=== PATIENT | female | born 1945 | race Caucasian/White ===

== ENCOUNTER 2018-05-22 13:57 | Inpatient (IN) | payer OTHER, SELFPAY ==
[2018-05-22 14:09] VITALS: BP 122/93; PULSE 78; RESP 15; TEMP 36.6; O2SAT 94; BMI 29.2
--- NOTE | 2018-05-22 14:13 | ED.FALL ---
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 Urine WBC (0-5/HPF) Ur Squamous Epith Cells Urine Bacteria (None) Ur Culture Indicated? Micro UA Comment Phenytoin 34.4 H* 29.5 H D (10-20) ug/mL 05/23/18 05/24/18 05/24/18 Range/Units 08:32 05:00 05:00 WBC 5.6 (4.5-11.0) X10^3/uL RBC 4.16 (4.0-5.2) X10^6/uL Hgb 12.5 (12.0-16.0) g/dL Hct 38.0 (36-46) % MCV 91.4 (80-100) fL MCH 30.2 (26-34) PG MCHC 33.0 (30-36) % RDW 13.3 (11.6-14.8) % Plt Count 194 (150-400) X10^3/uL Neut % (Auto) 47.7 L (50-75) % Lymph % (Auto) 36.7 (25-40) % [place] % (Auto) 12.2 (3-14) % Eos % (Auto) 2.9 (2-4) % Baso % (Auto) 0.5 (0-2) % Neut # (Auto) 2700 (7445-4105) /uL Sodium (137-145) mmol/L Potassium (3.4-5.1) mmol/L Chloride (98-107) mmol/L Carbon Dioxide (22-32) mmol/L BUN (7-17) mg/dL Creatinine (0.52-1.04) mg/dL Estimated GFR (>60) mL/min BUN/Creatinine Ratio (6-22) Glucose (80-110) mg/dL Calcium (8.4-10.2) mg/dL Phosphorus (2.8-4.1) mg/dL Magnesium (1.6-2.3) mg/dL Total Bilirubin (0.2-1.3) mg/dL AST (14-36) IU/L ALT (9-52) IU/L Alkaline Phosphatase (38-126) U/L Total Protein (6.3-8.2) g/dL Albumin (3.5-5.0) g/dL Globulin (1.7-4.1) g/dL Albumin/Globulin Ratio (1.0-2.8) Urine Color Yellow Urine Appearance Sl cloudy Urine pH 7.0 (4.5-8.0) Ur Specific [place] 1.015 (1.000-1.035) Urine Protein Negative (Negative) Urine Glucose (UA) Negative (Negative) g/dL Urine Ketones Negative (NEGATIVE) Urine Occult Blood Trace-lysed (Negative) Urine Nitrate Positive H (Negative) Urine Bilirubin Negative (NEGATIVE) Urine Urobilinogen 0.2 (0.2) E.U./dL Ur Leukocyte Esterase 2+ H (NEGATIVE) Urine RBC 1-5/hpf (0-5/HPF) Urine WBC 30-100/hpf H (0-5/HPF) Ur Squamous Epith Cells 1-5 /hpf Urine Bacteria Many (>30) H (None) Ur Culture Indicated? Specimen cultured Micro UA Comment Not Reportable Phenytoin 24.1 H D (10-20) ug/mL 05/24/18 05/25/18 Range/Units 05:00 04:52 WBC (4.5-11.0) X10^3/uL RBC (4.0-5.2) X10^6/uL Hgb (12.0-16.0) g/dL Hct (36-46) % MCV (80-100) fL MCH (26-34) PG MCHC (30-36) % RDW (11.6-14.8) % Plt Count (150-400) X10^3/uL Neut % (Auto) (50-75) % Lymph % (Auto) (25-40) % [place] % (Auto) (3-14) % Eos % (Auto) (2-4) % Baso % (Auto) (0-2) % Neut # (Auto) (3970-6519) /uL Sodium 140 139 (137-145) mmol/L Potassium 4.1 4.2 (3.4-5.1) mmol/L Chloride 102 102 (98-107) mmol/L Carbon Dioxide 32 30 (22-32) mmol/L BUN 15 15 (7-17) mg/dL Creatinine 0.50 L 0.50 L (0.52-1.04) mg/dL Estimated GFR > 60.0 > 60.0 (>60) mL/min BUN/Creatinine Ratio 30.0 H 30.0 H (6-22) Glucose 96 95 (80-110) mg/dL Calcium 8.9 8.8 (8.4-10.2) mg/dL Phosphorus (2.8-4.1) mg/dL Magnesium (1.6-2.3) mg/dL Total Bilirubin 0.3 0.1 L (0.2-1.3) mg/dL AST 110 H 46 H (14-36) IU/L ALT 82 H 58 H (9-52) IU/L Alkaline Phosphatase 125 120 (38-126) U/L Total Protein 6.2 L 6.0 L (6.3-8.2) g/dL Albumin 3.5 3.3 L (3.5-5.0) g/dL Globulin 2.7 2.7 (1.7-4.1) g/dL Albumin/Globulin Ratio 1.3 1.2 (1.0-2.8) Urine Color Urine Appearance Urine pH (4.5-8.0) Ur Specific [place] (1.000-1.035) Urine Protein (Negative) Urine Glucose (UA) (Negative) g/dL Urine Ketones (NEGATIVE) Urine Occult Blood (Negative) Urine Nitrate (Negative) Urine Bilirubin (NEGATIVE) Urine Urobilinogen (0.2) E.U./dL Ur Leukocyte Esterase (NEGATIVE) Urine RBC (0-5/HPF) Urine WBC (0-5/HPF) Ur Squamous Epith Cells Urine Bacteria (None) Ur Culture Indicated? Micro UA Comment Phenytoin 19.7 D (10-20) ug/mL Discharge Plan Departure Patient Disposition: Admitted as Observation Clinical Impression: Unable to ambulate, Spinal stenosis, Falls frequently Discharge Date/Time: 05/22/18 18:26 Interventions: ED Discharge Assessment Last Done: 05/22/18 17:22 Admit Date/Time: 05/22/18 17:01 Admit Provider: Kenna Thornton <Mateo Turcios DO - Last Filed: 05/25/18 18:39> Cosign ED Attending Morgan Attestation: I was available for consultation during this patient's emergency department encounter
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
--- NOTE | 2018-05-22 14:50 | DI.CT.S_ITS ---
PROCEDURE: CT PEL WO CON INDICATIONS: Right hip pain/fall, do with LS spine TECHNIQUE: Noncontrast 3 mm axial sections acquired through the bony pelvis, with coronal and sagittal reformatting. COMPARISON: None. FINDINGS: Image quality: Excellent. Bones: Bilateral pars defects at L5 level with grade 1 anterolisthesis of L5 on S1 is seen. Degenerative disc disease at L5-S1 level is also noted. Pelvic ring is grossly intact. No acute pelvic fracture or dislocation is seen. No hip fracture or dislocation. Mild to moderate bilateral hip and sacroiliac joint osteoarthritic changes are seen. No evidence of avascular necrosis of the femoral head no suspicious intraosseous lesion. Soft tissues: There is no pelvic free fluid or free air. No bowel obstruction. Extensive sigmoid diverticulosis, no evidence of acute diverticulitis. Urinary bladder and uterus are within normal limits. IMPRESSION: 1. No acute pelvic or hip fracture. No dislocation. Osteoarthritis throughout bony pelvis. No evidence of avascular necrosis of femoral head. 2. Bilateral pars defect at L5 level with grade 1 anterolisthesis of L5 on S1. Degenerative disc disease at L5-S1 level. Dictated by: Alok Alves M.D. on 05/22/2018 at 15:21 Approved by: Alok Alves M.D. on 05/22/2018 at 15:25
[2018-05-22 15:11] VITALS: BP 129/62; PULSE 86; RESP 20; O2SAT 96
[2018-05-22] MEDS: HYDROCODONE/ACET 5/325 TABLET 2 TAB PO (15:17)
--- NOTE | 2018-05-22 16:16 | PC.NURSE ---
patient resting in bed,repositioned for comfort with pillow on left side.
[2018-05-22 16:50] VITALS: BP 119/56; PULSE 76; RESP 18; TEMP 36.7; O2SAT 97
--- NOTE | 2018-05-22 16:52 | PC.NURSE ---
Patient unable to take steps during ambulation trial d/t weakness not pain. positioned comfortably in bed on right side with pillow support. pt provided water and denies complaints at this time. friend at bedside, call light in reach.
[2018-05-22 17:35] VITALS: BP 134/57; PULSE 72; RESP 17; TEMP 36.7; O2SAT 93
[2018-05-22 17:49] VITALS: BMI 29.2
[2018-05-22 19:50] VITALS: BP 151/72; PULSE 82; RESP 18; TEMP 36.6
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
[2018-05-22 20:34] LABS: Add Manual Diff / Slide Review NO; Basophils Percent Auto 0.5 % (0-2); Eosinophils Percent Auto 0.9 % (2-4); Hematocrit 41.6 % (36-46); Hemoglobin 13.9 g/dL (12.0-16.0); Mean Corpuscular HGB Conc 33.4 % (30-36); Mean Corpuscular Hemoglobin 30.2 PG (26-34); Mean Corpuscular Volume 90.6 fL (80-100); Monocytes Percent Auto 9.5 % (3-14); Neutrophils Absolute Auto 5300 /uL (1500-7000); Neutrophils Percent Auto 61.1 % (50-75); Platelet Count 255 X10^3/uL (150-400); Red Cell Distribution Width 13.6 % (11.6-14.8); White Blood Cell Count 8.7 X10^3/uL (4.5-11.0)
[2018-05-22 20:48] LABS: Alanine Aminotransferase 25 IU/L (9-52); Albumin 4.1 g/dL (3.5-5.0); Albumin Globulin Ratio 1.4 (1.0-2.8); Alkaline Phosphatase 137 U/L (38-126); Aspartate Aminotransferase 64 IU/L (14-36); Bilirubin Total 0.4 mg/dL (0.2-1.3); Blood Urea Nitrogen 12 mg/dL (7-17); Calcium 9.1 mg/dL (8.4-10.2); Carbon Dioxide 29 mmol/L (22-32); Chloride 99 mmol/L (98-107); Estimated Glomerular Filt Rate > 60.0 mL/min (>60); Glucose 102 mg/dL (80-110); HEMOLYSIS < 15 (0-50); Magnesium 2.1 mg/dL (1.6-2.3); Phenytoin / Dilantin 34.4 ug/mL (10-20); Phosphorous 4.1 mg/dL (2.8-4.1); Potassium 3.5 mmol/L (3.4-5.1); Sodium 139 mmol/L (137-145); Total Protein 7.1 g/dL (6.3-8.2)
[2018-05-22] MEDS: dilTIAZem CD 180 MG CAP PO (21:34)
[2018-05-22] MEDS: DOCUSATE 100 MG CAPSULE PO (21:34)
[2018-05-22] MEDS: PHENobarbital 32.4 MG TABLET 97.2 MG PO (21:45)
[2018-05-22] MEDS: ACETAMINOPHEN 325 MG TABLET 650 MG PO (21:46)
[2018-05-22 23:50] VITALS: O2SAT 93
[2018-05-23] VITALS (10 sets, daily range): BP systolic 111–137; BP diastolic 52–66; PULSE 68–76; RESP 14–18; TEMP 36.3–36.7; O2SAT 92–97
[2018-05-23] MEDS: HYDROCODONE/ACET 5/325 TABLET 2 TAB PO ×3 (00:17→21:52)
--- NOTE | 2018-05-23 06:07 | PC.NURSE ---
Pt A&OX3. 93%RA. LS: clear. BTX4. CMS+. VSS. she c/o head ache last night and I gave her 2 tabs of norco. Pt denies pain at this time. She is unsure if she is still having dizziness or blurry vision. pt wants to be left alone, so she can sleep. call light in reach. bed alarm active.
[2018-05-23 07:20] LABS: Phenytoin / Dilantin 29.5 ug/mL (10-20)
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
[2018-05-23] MEDS: ENOXAPARIN 40 MG/0.4 ML SYRINGE SUBCUT (09:12)
[2018-05-23] MEDS: levETIRAcetam 250 MG TABLET 500 MG PO (09:12)
[2018-05-23 09:52] LABS: Appearance Urine UA SL CLOUDY; Bilirubin Urine UA NEGATIVE (NEGATIVE); Color Urine UA YELLOW; Glucose Urine UA NEGATIVE (Negative); Ketones Urine UA NEGATIVE (NEGATIVE); Leukocyte Esterase Urine UA 2+ (NEGATIVE); Nitrite Urine UA POSITIVE (Negative); Occult Blood Urine UA TRACE-LYSED (Negative); Protein Urine UA NEGATIVE (Negative); Specific Gravity Urine UA 1.015 (1.000-1.035); Urobilinogen Urine UA 0.2 E.U./dL (0.2)
[2018-05-23 10:21] LABS: Bacteria Urine Many (>30); Culture Indicated Urine Specimen Cultured; RBC Urine 1-5/HPF (0-5/HPF); Squamous Epithelial Cell Urine 1-5 /HPF; WBC Urine 30-100/HPF (0-5/HPF)
[2018-05-23] MEDS: LORATADINE 10 MG TABLET PO (11:44)
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
--- NOTE | 2018-05-23 16:01 | CM.IDA ---
Addendum entered by PARTHA oRman 05/24/18 12:03: [place] not Hinduism. Original Note: Attempted assessment today, pt w/two young members of Hindu[employer] at bedside and lunch being delivered. Pt requests this [employer] return another time or tomorrow. Will attempt assessment Saturday. Reviewed therapy note and spoke w/OT Venita. Pt is indp at baseline. She lost her spouse approx 18 mo ago and does not have anyone else listed as a contact or support. Pt currently far from baseline and would benefit from either SNF vs Home w/Home Health. As of today; pt not interested in SNF stay. Following closely. JW
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
[2018-05-23] MEDS: DOCUSATE 100 MG CAPSULE PO (21:51)
[2018-05-23] MEDS: dilTIAZem CD 180 MG CAP PO (21:51)
[2018-05-23] MEDS: PHENobarbital 32.4 MG TABLET 97.2 MG PO (21:51)
[2018-05-23] MEDS: LORazepam 2 MG/ML SYRINGE 0.5 MG IV (23:45)
[2018-05-24] VITALS (8 sets, daily range): BP systolic 115–139; BP diastolic 46–71; PULSE 67–78; RESP 16–18; TEMP 36.3–36.9; O2SAT 93–96
[2018-05-24 05:44] LABS: Add Manual Diff / Slide Review NO; Basophils Percent Auto 0.5 % (0-2); Eosinophils Percent Auto 2.9 % (2-4); Hemoglobin 12.5 g/dL (12.0-16.0); Lymphocytes Percent Auto 36.7 % (25-40); Mean Corpuscular Hemoglobin 30.2 PG (26-34); Mean Corpuscular Volume 91.4 fL (80-100); Monocytes Percent Auto 12.2 % (3-14); Neutrophils Absolute Auto 2700 /uL (1500-7000); Neutrophils Percent Auto 47.7 % (50-75); Platelet Count 194 X10^3/uL (150-400); Red Blood Cell Count 4.16 X10^6/uL (4.0-5.2); Red Cell Distribution Width 13.3 % (11.6-14.8); White Blood Cell Count 5.6 X10^3/uL (4.5-11.0)
[2018-05-24 05:51] LABS: Alanine Aminotransferase 82 IU/L (9-52); Albumin 3.5 g/dL (3.5-5.0); Albumin Globulin Ratio 1.3 (1.0-2.8); Alkaline Phosphatase 125 U/L (38-126); Aspartate Aminotransferase 110 IU/L (14-36); Bilirubin Total 0.3 mg/dL (0.2-1.3); Blood Urea Nitrogen 15 mg/dL (7-17); Calcium 8.9 mg/dL (8.4-10.2); Carbon Dioxide 32 mmol/L (22-32); Chloride 102 mmol/L (98-107); Estimated Glomerular Filt Rate > 60.0 mL/min (>60); Globulin 2.7 g/dL (1.7-4.1); Glucose 96 mg/dL (80-110); HEMOLYSIS < 15 (0-50); Potassium 4.1 mmol/L (3.4-5.1); Sodium 140 mmol/L (137-145); Total Protein 6.2 g/dL (6.3-8.2)
[2018-05-24 06:10] LABS: Phenytoin / Dilantin 24.1 ug/mL (10-20)
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
[2018-05-24] MEDS: DOCUSATE 100 MG CAPSULE PO ×2 (10:39→21:32)
[2018-05-24] MEDS: levETIRAcetam 250 MG TABLET 500 MG PO (10:39)
[2018-05-24] MEDS: LORATADINE 10 MG TABLET PO (10:39)
[2018-05-24] MEDS: ENOXAPARIN 40 MG/0.4 ML SYRINGE SUBCUT (10:39)
[2018-05-24] MEDS: HYDROCODONE/ACET 5/325 TABLET 2 TAB PO ×2 (10:49→22:27)
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
--- NOTE | 2018-05-24 12:05 | PT.IPTN ---
Current Diagnoses Spinal stenosis, site unspecified (05/22/18) Difficulty in walking, not elsewhere classified (05/22/18) Repeated falls (05/22/18) Physical Therapy Treatment Note M2 PT-IP Current Condition Start: 05/23/18 12:36 Freq: NEEDED Status: Active Protocol: Document 05/23/18 11:00 HH (Rec: 05/23/18 13:08 [email or web address]) Physical Therapy Current Condition Current Condition Evaluation Date 05/23/17 Treatment Diagnosis GLF, UTI, difficulty in walking, generalized muscle weakness Onset Date 05/22/18 Weight Bearing Status Weight Bearing Status Weight Bear as Tolerated M3 PT-IP Subjective Start: 05/23/18 12:36 Freq: NEEDED Status: Active Protocol: Document 05/24/18 12:05 RCC (Rec: 05/24/18 12:27 RCC [id number]) Subjective Physical Therapy Visit Type Type Treatment Note Visit Start Time 11:40 Visit Stop Time 12:05 Total Visit Minutes 25 Number of CLAIMS REPRESENTATIVE Visits 0 Physical Therapy Visit Comments Patient Comments pt states she feels apprehensive about mobility. Therapy Pain Assessment Pain Present Pain Present Pain Reported M4 PT-IP Mobility and Gait Start: 05/23/18 12:36 Freq: NEEDED Status: Active Protocol: Document 05/24/18 12:05 RCC (Rec: 05/24/18 12:27 RCC [id number]) PT-Bed Mobility Assessment Supine to Sit Supine to Sit Contact Guard Assistance Head of Bed Elevated Bedrails Sit to Supine Sit to Supine Standby Assistance Head of Bed Elevated Bedrails Scooting Scooting to Edge of Bed Standby Assistance Scooting Up and Down in Bed Standby Assistance PT-Transfer Assessment Sit to and From Stand Sit to and from Stand Contact Guard Assistance Equipment Transfer Assistive Device Gait Belt Front Wheeled Walker Transfers Transfer Destination Bed Transfer Technique Stand Step Pivot Transfer Ability Level of Assist Contact Guard Assistance Comments Mobility Comments increased amount of time required for bed mobility Gait Assessment Gait Gait Assistance Required: Contact Guard Assist Distance (Feet) 20 Assistive Devices Assistive Device Gait Belt Front Wheeled Walker Gait Deviations General Gait Pattern Antalgic Decreased Stride Length Decreased Feet Clearance Flexed Trunk Step-to Gait Factors Limiting Gait Function Factors Limiting Gait Function Decreased Activity Tolerance Decreased Strength Pain Poor Balance Poor Safety Awareness Comments Gait Comments increased amount of time for ambulation, 1 sitting rest break after 10 ft of gait, then 2nd 10 ft of gait after recovered. M5 PT-IP Objective Assessments Start: 05/23/18 12:36 Freq: NEEDED Status: Active Protocol: Document 05/23/18 11:00 (Rec: 05/23/18 13:08 [email or web address]) Orientation Orientation/Cognition Level of Alertness Alert Orientation Name Age Birthday Month Date Year Day of Week Place Situation Language Function Ability No Deficits Noted Safety Awareness Understands Safety Issues Memory Description No Deficits Noted Gross Range of Motion Upper Extremity ROM Assessment Within Functional Limits Lower Extremity ROM Assessment Within Functional Limits Strength Upper Extremity Strength Assessment Within Functional Limits Lower Extremity Strength Assessment Bilaterally Impaired Hip 3/5 Knee 3/5 Ankle 3/5 Comments Strength Comments She was not able to stand upright who reports I feel my legs are shaky and about to buckle. She also demonstrates gross LE strength 3/5 with significant tremors upon exertion. Coordination Assessment Gross Coordination Gross Coordination WNL Sensation Assessment Sensation Gross Sensation WNL M6 PT-IP Treatment Start: 05/23/18 12:36 Freq: NEEDED Status: Active Protocol: Document 05/23/18 11:00 (Rec: 05/23/18 13:08 [email or web address]) Physical Therapy Treatment Exercises Exercises Ankle Pumps Gluteal Sets Quad Sets Heel Slides Straight Leg Raises M7 PT-IP Assessment and Plan Start: 05/23/18 12:36 Freq: NEEDED Status: Active Protocol: Document 05/24/18 12:05 RCC (Rec: 05/24/18 12:27 RCC [id number]) PT Summary Assessment and Plan Summary Assessment Summary Pt able to progress her gait slightly, but still very limited with mobility. She did not have any buckling of the LEs today, but does have evident fatigue with BLE shaking/trembling. She required a seated rest for 2 min after gait x10 ft, just to be able to tolerate gait x10 ft again. Pt is not safe to return home at this point, and if she does not improve her mobility she may require increased care or SNF rehabilitation placement. Goals Bed Mobility Goal Standby Assistance Transfer Goal Standby Assistance Gait Goal Standby Assistance Gait Distance 100 Other Goals stair climbing x 5 with railings x SBA Days to Meet Goals 10 Frequency of Treatment Frequency Of Treatment Once a Day Treatment Plan Other Recommendations and Next Treatment progress gait at tolerated, Focus stairs when able. Recommendations To Nursing Amount of Assist Needed 1 Person Assist Discharge Recommendations PT Discharge Recommendations Home Home Health SNF Rehab
[2018-05-24] MEDS: CEFAZOLIN VIAL 1 GM in SODIUM CHLORIDE 0.9% 100 ML 200 ML IV ×2 (14:52→21:32)
[2018-05-24] MEDS: dilTIAZem CD 180 MG CAP PO (21:32)
[2018-05-24] MEDS: PHENobarbital 32.4 MG TABLET 97.2 MG PO (21:32)
[2018-05-25] VITALS (10 sets, daily range): BP systolic 110–136; BP diastolic 51–75; PULSE 64–76; RESP 16–20; TEMP 36.4–36.8; O2SAT 92–95
[2018-05-25 06:00] LABS: Alanine Aminotransferase 58 IU/L (9-52); Albumin 3.3 g/dL (3.5-5.0); Albumin Globulin Ratio 1.2 (1.0-2.8); Alkaline Phosphatase 120 U/L (38-126); Aspartate Aminotransferase 46 IU/L (14-36); Bilirubin Total 0.1 mg/dL (0.2-1.3); Blood Urea Nitrogen 15 mg/dL (7-17); Calcium 8.8 mg/dL (8.4-10.2); Carbon Dioxide 30 mmol/L (22-32); Chloride 102 mmol/L (98-107); Estimated Glomerular Filt Rate > 60.0 mL/min (>60); Globulin 2.7 g/dL (1.7-4.1); Glucose 95 mg/dL (80-110); HEMOLYSIS < 15 (0-50); Potassium 4.2 mmol/L (3.4-5.1); Sodium 139 mmol/L (137-145)
[2018-05-25 06:32] LABS: Phenytoin / Dilantin 19.7 ug/mL (10-20)
[2018-05-25] MEDS: HYDROCODONE/ACET 5/325 TABLET 2 TAB PO (06:55)
--- NOTE | 2018-05-25 07:41 | PC.NURSE ---
Patient slept well this shift. Got up to use BR, had right flank and side pain flare up with movement. 2 norco given for pain. She is concerned with her dilantin levels, and her ability to be discharged.
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
[2018-05-25] MEDS: ENOXAPARIN 40 MG/0.4 ML SYRINGE SUBCUT (09:41)
[2018-05-25] MEDS: DOCUSATE 100 MG CAPSULE PO ×2 (09:41→20:58)
[2018-05-25] MEDS: LORATADINE 10 MG TABLET PO (09:41)
[2018-05-25] MEDS: ONDANSETRON 4 MG ODT PO (11:54)
[2018-05-25] MEDS: SUMAtriptan 25 MG TABLET 100 MG PO (12:49)
--- NOTE | 2018-05-25 14:19 | PT.IPTN ---
Current Diagnoses Spinal stenosis, site unspecified (05/22/18) Difficulty in walking, not elsewhere classified (05/22/18) Repeated falls (05/22/18) Physical Therapy Treatment Note M2 PT-IP Current Condition Start: 05/23/18 12:36 Freq: NEEDED Status: Active Protocol: Document 05/23/18 11:00 HH (Rec: 05/23/18 13:08 HH [email or web address]) Physical Therapy Current Condition Current Condition Evaluation Date 05/23/17 Treatment Diagnosis GLF, UTI, difficulty in walking, generalized muscle weakness Onset Date 05/22/18 Weight Bearing Status Weight Bearing Status Weight Bear as Tolerated M3 PT-IP Subjective Start: 05/23/18 12:36 Freq: NEEDED Status: Active Protocol: Document 05/25/18 10:35 CLB (Rec: 05/25/18 14:19 CLB [id number]) Subjective Physical Therapy Visit Type Type Treatment Note Visit Start Time 10:35 Visit Stop Time 11:05 Total Visit Minutes 30 Number of REFRACTORY MANAGER Visits 1 Physical Therapy Visit Comments Patient Comments Pt states she feels better today. Therapy Pain Assessment Pain When Pain Assessed At Rest Pain Present Pain Present Pain Reported Location Right side body Intensity 5 Scale Used Numeric (1 - 10) Pain Management Techniques Apply Cold Re-positioning Timing of Activity with Medications M4 PT-IP Mobility and Gait Start: 05/23/18 12:36 Freq: NEEDED Status: Active Protocol: Document 05/25/18 10:35 CLB (Rec: 05/25/18 14:19 CLB [id number]) PT-Bed Mobility Assessment Supine to Sit Supine to Sit Contact Guard Assistance Head of Bed Elevated Sit to Supine Sit to Supine Standby Assistance Head of Bed Elevated Scooting Scooting to Edge of Bed Standby Assistance Scooting Up and Down in Bed Standby Assistance PT-Transfer Assessment Sit to and From Stand Sit to and from Stand Contact Guard Assistance Equipment Transfer Assistive Device Gait Belt Front Wheeled Walker Transfers Transfer Destination Chair Transfer Technique after ambulation Transfer Ability Level of Assist Contact Guard Assistance Comments Mobility Comments Pt requiring less assist with bed mobility but needed cues for sequencing. Gait Assessment Gait Gait Assistance Required: Contact Guard Assist Distance (Feet) 100 Assistive Devices Assistive Device Gait Belt Front Wheeled Walker Gait Deviations General Gait Pattern Antalgic Decreased Stride Length Decreased Feet Clearance Flexed Trunk Factors Limiting Gait Function Factors Limiting Gait Function Decreased Activity Tolerance Decreased Strength Pain Poor Balance Poor Safety Awareness Comments Gait Comments Pt increased gait needing seated rest break after ~50ft. Pt had no shaking of legs and was able to ambulate back to room ~50ft before sitting. Chair follow was use with pt and pt was able to sit as soon as she felt fatigued. M5 PT-IP Objective Assessments Start: 05/23/18 12:36 Freq: NEEDED Status: Active Protocol: Document 05/23/18 11:00 HH (Rec: 05/23/18 13:08 [email or web address]) Orientation Orientation/Cognition Level of Alertness Alert Orientation Name Age Birthday Month Date Year Day of Week Place Situation Language Function Ability No Deficits Noted Safety Awareness Understands Safety Issues Memory Description No Deficits Noted Gross Range of Motion Upper Extremity ROM Assessment Within Functional Limits Lower Extremity ROM Assessment Within Functional Limits Strength Upper Extremity Strength Assessment Within Functional Limits Lower Extremity Strength Assessment Bilaterally Impaired Hip 3/5 Knee 3/5 Ankle 3/5 Comments Strength Comments She was not able to stand upright who reports I feel my legs are shaky and about to buckle. She also demonstrates gross LE strength 3/5 with significant tremors upon exertion. Coordination Assessment Gross Coordination Gross Coordination WNL Sensation Assessment Sensation Gross Sensation WNL M6 PT-IP Treatment Start: 05/23/18 12:36 Freq: NEEDED Status: Active Protocol: Document 05/23/18 11:00 HH (Rec: 05/23/18 13:08 [email or web address]) Physical Therapy Treatment Exercises Exercises Ankle Pumps Gluteal Sets Quad Sets Heel Slides Straight Leg Raises M7 PT-IP Assessment and Plan Start: 05/23/18 12:36 Freq: NEEDED Status: Active Protocol: Document 05/25/18 10:35 CLB (Rec: 05/25/18 14:19 CLB [id number]) PT Summary Assessment and Plan Summary Assessment Summary Pt progressed gait to ~100ft needing one 5 minute rest break as chair follow was used . Pt had no shaking in legs of buckling of LEs. Pt improved bed mobility but requires cues for sequencing and needs cues for chair approach for safety. Goals Bed Mobility Goal Standby Assistance Transfer Goal Standby Assistance Gait Goal Standby Assistance Gait Distance 100 Other Goals stair climbing x 5 with railings x SBA Days to Meet Goals 10 Frequency of Treatment Frequency Of Treatment Once a Day Treatment Plan Other Recommendations and Next Treatment progress gait at tolerated, Focus stairs when able. Discharge Recommendations PT Discharge Recommendations Home Home Health SNF Rehab
--- NOTE | 2018-05-25 16:05 | CM.DPC ---
DCP Cont: Met w/pt again today. She was sitting up in chair; pt still feeling somewhat overwhelmed today by life stressors. Again encouraged pt to concentrate on getting stable here and getting safely home, then tackling long-term tasks and goals. Discussed HH and pt agreeable to referral to [facility]. Pt okay w/ PT/OT/RN, does not want a bath aid at this time. Completed F2F and HH order. Referral still needed. P: DC likely Saturday or Saturday, hopefully w/[facility] to f/u. This PHOTOGRAPHIC DOUBLE encouraged pt to secure a ride today to her counseling appt 05.27. at 1400. PARTHA Roman
[2018-05-25] MEDS: CEFAZOLIN 2 GM/100 ML FROZ.PIGGY IV ×2 (17:00→23:38)
[2018-05-25] MEDS: HYDROCODONE/ACET 5/325 TABLET 1 TAB PO (20:58)
[2018-05-25] MEDS: PHENobarbital 32.4 MG TABLET 97.2 MG PO (20:58)
[2018-05-25] MEDS: levETIRAcetam 250 MG TABLET 500 MG PO (20:59)
[2018-05-25] MEDS: PHENYTOIN ER 100 MG CAPSULE 300 MG PO (20:59)
[2018-05-25] MEDS: dilTIAZem CD 180 MG CAP PO (21:30)
[2018-05-26] MEDS: LORazepam 0.5 MG TABLET PO (00:32)
[2018-05-26 05:10] VITALS: BP 120/59; PULSE 60; RESP 20; TEMP 36.4; O2SAT 96
[2018-05-26 06:06] LABS: Alanine Aminotransferase 56 IU/L (9-52); Albumin 3.4 g/dL (3.5-5.0); Albumin Globulin Ratio 1.3 (1.0-2.8); Alkaline Phosphatase 116 U/L (38-126); Aspartate Aminotransferase 51 IU/L (14-36); BUN Creatinine Ratio 37.5 (6-22); Bilirubin Total 0.2 mg/dL (0.2-1.3); Blood Urea Nitrogen 15 mg/dL (7-17); Carbon Dioxide 28 mmol/L (22-32); Chloride 103 mmol/L (98-107); Estimated Glomerular Filt Rate > 60.0 mL/min (>60); Globulin 2.7 g/dL (1.7-4.1); Glucose 82 mg/dL (80-110); HEMOLYSIS 50 (0-50); Phenytoin / Dilantin 16.1 ug/mL (10-20); Potassium 4.3 mmol/L (3.4-5.1); Sodium 139 mmol/L (137-145); Total Protein 6.1 g/dL (6.3-8.2)
[2018-05-26 06:09] LABS: Add Manual Diff / Slide Review NO; Basophils Percent Auto 0.4 % (0-2); Eosinophils Percent Auto 2.5 % (2-4); Hematocrit 36.9 % (36-46); Hemoglobin 12.5 g/dL (12.0-16.0); Lymphocytes Percent Auto 36.2 % (25-40); Mean Corpuscular Hemoglobin 30.5 PG (26-34); Mean Corpuscular Volume 89.8 fL (80-100); Neutrophils Absolute Auto 2700 /uL (1500-7000); Neutrophils Percent Auto 47.9 % (50-75); Platelet Count 182 X10^3/uL (150-400); Red Blood Cell Count 4.11 X10^6/uL (4.0-5.2); Red Cell Distribution Width 13.6 % (11.6-14.8); White Blood Cell Count 5.6 X10^3/uL (4.5-11.0)
[2018-05-26 08:00] VITALS: BP 111/60; PULSE 67; RESP 16; TEMP 35.4; O2SAT 97
[2018-05-26 08:18] VITALS: O2SAT 96
[2018-05-26] MEDS: CEFAZOLIN 2 GM/100 ML FROZ.PIGGY IV ×3 (08:34→23:41)
[2018-05-26] MEDS: PHENobarbital 32.4 MG TABLET 97.2 MG PO ×2 (08:35→22:30)
[2018-05-26] MEDS: LORATADINE 10 MG TABLET PO (08:44)
[2018-05-26] MEDS: ENOXAPARIN 40 MG/0.4 ML SYRINGE SUBCUT (08:44)
[2018-05-26] MEDS: SODIUM CHLORIDE 0.9% FLUSH 10 ML IV ×3 (08:44→23:41)
--- NOTE | 2018-05-26 12:15 | PT.IPTN ---
Current Diagnoses Spinal stenosis, site unspecified (05/22/18) Difficulty in walking, not elsewhere classified (05/22/18) Repeated falls (05/22/18) Physical Therapy Treatment Note M2 PT-IP Current Condition Start: 05/23/18 12:36 Freq: NEEDED Status: Active Protocol: Document 05/23/18 11:00 HH (Rec: 05/23/18 13:08 HH [email or web address]) Physical Therapy Current Condition Current Condition Evaluation Date 05/23/17 Treatment Diagnosis GLF, UTI, difficulty in walking, generalized muscle weakness Onset Date 05/22/18 Weight Bearing Status Weight Bearing Status Weight Bear as Tolerated M3 PT-IP Subjective Start: 05/23/18 12:36 Freq: NEEDED Status: Active Protocol: Document 05/26/18 10:00 CLB (Rec: 05/26/18 12:15 CLB [email or web address]) Subjective Physical Therapy Visit Type Type Treatment Note Visit Start Time 10:00 Visit Stop Time 10:26 Total Visit Minutes 26 Number of BAND DIRECTOR Visits 2 Physical Therapy Visit Comments Patient Comments Pt willing to get up for a walk but refused sitting up in chair. Therapy Pain Assessment Pain When Pain Assessed At Rest Pain Present Pain Present Pain Reported Location Right side body Scale Used unable to state M4 PT-IP Mobility and Gait Start: 05/23/18 12:36 Freq: NEEDED Status: Active Protocol: Document 05/26/18 10:00 CLB (Rec: 05/26/18 12:15 CLB [email or web address]) PT-Bed Mobility Assessment Supine to Sit Supine to Sit Standby Assistance Sit to Supine Sit to Supine Standby Assistance Head of Bed Elevated Scooting Scooting to Edge of Bed Standby Assistance Scooting Up and Down in Bed Standby Assistance PT-Transfer Assessment Sit to and From Stand Sit to and from Stand Contact Guard Assistance Equipment Transfer Assistive Device Gait Belt Front Wheeled Walker Transfers Transfer Destination Bed Transfer Technique after ambulation Transfer Ability Level of Assist Contact Guard Assistance Comments Mobility Comments Pt able to get to EOB w/o cues with good pacing. Gait Assessment Gait Gait Assistance Required: Contact Guard Assist Distance (Feet) 110 Assistive Devices Assistive Device Gait Belt Front Wheeled Walker Gait Deviations General Gait Pattern Decreased Stride Length Decreased Feet Clearance Flexed Trunk Factors Limiting Gait Function Factors Limiting Gait Function Decreased Activity Tolerance Decreased Strength Pain Comments Gait Comments Pt able to ambulate ~110 ft w/ o need of rest break. Pt also ambulated with quicker pace with increase stride length. M5 PT-IP Objective Assessments Start: 05/23/18 12:36 Freq: NEEDED Status: Active Protocol: Document 05/23/18 11:00 HH (Rec: 05/23/18 13:08 HH [email or web address]) Orientation Orientation/Cognition Level of Alertness Alert Orientation Name Age Birthday Month Date Year Day of Week Place Situation Language Function Ability No Deficits Noted Safety Awareness Understands Safety Issues Memory Description No Deficits Noted Gross Range of Motion Upper Extremity ROM Assessment Within Functional Limits Lower Extremity ROM Assessment Within Functional Limits Strength Upper Extremity Strength Assessment Within Functional Limits Lower Extremity Strength Assessment Bilaterally Impaired Hip 3/5 Knee 3/5 Ankle 3/5 Comments Strength Comments She was not able to stand upright who reports I feel my legs are shaky and about to buckle. She also demonstrates gross LE strength 3/5 with significant tremors upon exertion. Coordination Assessment Gross Coordination Gross Coordination WNL Sensation Assessment Sensation Gross Sensation WNL M6 PT-IP Treatment Start: 05/23/18 12:36 Freq: NEEDED Status: Active Protocol: Document 05/26/18 10:00 CLB (Rec: 05/26/18 12:15 CLB [email or web address]) Physical Therapy Treatment Exercises Exercises Gluteal Sets Quad Sets Heel Slides M7 PT-IP Assessment and Plan Start: 05/23/18 12:36 Freq: NEEDED Status: Active Protocol: Document 05/26/18 10:00 CLB (Rec: 05/26/18 12:15 CLB [id number]) PT Summary Assessment and Plan Summary Assessment Summary Pt progressing with bed mobility and gait. Pt ambulated ~110ft CGA w/o need of rest break. Pt had no shaking or weakness in LE with any activities today. Goals Bed Mobility Goal Standby Assistance Transfer Goal Standby Assistance Other Goals stair climbing x 5 with railings x SBA Days to Meet Goals 10 Frequency of Treatment Frequency Of Treatment Once a Day Treatment Plan Other Recommendations and Next Treatment progress gait at tolerated, Focus stairs when able. Recommendations To Nursing Amount of Assist Needed 1 Person Assist Discharge Recommendations PT Discharge Recommendations Home Home Health SNF Rehab
[2018-05-26 13:00] VITALS: BP 120/63; PULSE 80; RESP 16; TEMP 37.4; O2SAT 96
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
[2018-05-26 16:14] VITALS: BP 127/53; PULSE 69; RESP 20; TEMP 37.2; O2SAT 96
--- NOTE | 2018-05-26 16:56 | PT.IPTN ---
Current Diagnoses Spinal stenosis, site unspecified (05/22/18) Difficulty in walking, not elsewhere classified (05/22/18) Repeated falls (05/22/18) Physical Therapy Treatment Note M2 PT-IP Current Condition Start: 05/23/18 12:36 Freq: NEEDED Status: Active Protocol: Document 05/23/18 11:00 [facility] (Rec: 05/23/18 13:08 [facility] [id number]) Physical Therapy Current Condition Current Condition Evaluation Date 05/23/17 Treatment Diagnosis GLF, UTI, difficulty in walking, generalized muscle weakness Onset Date 05/22/18 Weight Bearing Status Weight Bearing Status Weight Bear as Tolerated M3 PT-IP Subjective Start: 05/23/18 12:36 Freq: NEEDED Status: Active Protocol: Document 05/26/18 15:10 [facility] (Rec: 05/26/18 16:56 [facility] [id number]) Subjective Physical Therapy Visit Type Type Treatment Note Visit Start Time 15:10 Visit Stop Time 15:50 Total Visit Minutes 40 Number of GUT CARRIER Visits 3 Physical Therapy Visit Comments Patient Comments Pt willing to trial stairs. Therapy Pain Assessment Pain When Pain Assessed At Rest Pain Present Pain Present Pain Reported M4 PT-IP Mobility and Gait Start: 05/23/18 12:36 Freq: NEEDED Status: Active Protocol: Document 05/26/18 15:10 [facility] (Rec: 05/26/18 16:56 [facility] [id number]) PT-Bed Mobility Assessment Supine to Sit Supine to Sit Standby Assistance Sit to Supine Sit to Supine Standby Assistance Head of Bed Elevated Scooting Scooting to Edge of Bed Standby Assistance Scooting Up and Down in Bed Standby Assistance PT-Transfer Assessment Sit to and From Stand Sit to and from Stand Contact Guard Assistance Equipment Transfer Assistive Device Gait Belt Front Wheeled Walker Transfers Transfer Destination Bed Toilet Wheelchair Transfer Ability Level of Assist Contact Guard Assistance Comments Mobility Comments Pt able to transfer to toilet using grab bars and perform own pericare. Gait Assessment Gait Gait Assistance Required: Contact Guard Assist Distance (Feet) 50 Assistive Devices Assistive Device Gait Belt Front Wheeled Walker Gait Deviations General Gait Pattern Decreased Stride Length Decreased Feet Clearance Flexed Trunk Factors Limiting Gait Function Factors Limiting Gait Function Decreased Activity Tolerance Decreased Strength Pain Comments Gait Comments Pt ambulated to then to . Stair Climbing Assessment Evaluation Level of Assist On Stairs Contact Guard Assistance Devices Stair Climbing Assistive Devices Left Railing Technique/Endurance Stair Climbing Direction Ascend and Descend Stair Climbing Technique Step to Step Number of Steps Climbed 3 Query Text: Stair Climbing Set # Repetitions (reps) 4 Comments Stair Climbing Comments Pt trialed stairs going up/ down step to step then pt requested using both hands side stepping. Spoke with PT Gonzalez concerning pt progress and have changed pt to twice a day for therapy. M5 PT-IP Objective Assessments Start: 05/23/18 12:36 Freq: NEEDED Status: Active Protocol: Document 05/23/18 11:00 [facility] (Rec: 05/23/18 13:08 [facility] [id number]) Orientation Orientation/Cognition Level of Alertness Alert Orientation Name Age Birthday Month Date Year Day of Week Place Situation Language Function Ability No Deficits Noted Safety Awareness Understands Safety Issues Memory Description No Deficits Noted Gross Range of Motion Upper Extremity ROM Assessment Within Functional Limits Lower Extremity ROM Assessment Within Functional Limits Strength Upper Extremity Strength Assessment Within Functional Limits Lower Extremity Strength Assessment Bilaterally Impaired Hip 3/5 Knee 3/5 Ankle 3/5 Comments Strength Comments She was not able to stand upright who reports I feel my legs are shaky and about to buckle. She also demonstrates gross LE strength 3/5 with significant tremors upon exertion. Coordination Assessment Gross Coordination Gross Coordination WNL Sensation Assessment Sensation Gross Sensation WNL M6 PT-IP Treatment Start: 05/23/18 12:36 Freq: NEEDED Status: Active Protocol: Document 05/26/18 15:10 [facility] (Rec: 05/26/18 16:56 [facility] [id number]) Physical Therapy Treatment Exercises Exercises Gluteal Sets Quad Sets Heel Slides M7 PT-IP Assessment and Plan Start: 05/23/18 12:36 Freq: NEEDED Status: Active Protocol: Document 05/26/18 15:10 [facility] (Rec: 05/26/18 16:56 [facility] [id number]) PT Summary Assessment and Plan Summary Assessment Summary Pt requires SBA for all bed mobility, CGA for sit-stand with cues for chair/bed/toilet approach. Pt able to climb 4 sets of 3 steps w/o complaint of increased pain or weakness. Goals Bed Mobility Goal Standby Assistance Transfer Goal Standby Assistance Gait Goal Standby Assistance Gait Distance 100 Other Goals stair climbing x 5 with railings x SBA Days to Meet Goals 10 Frequency of Treatment Frequency Of Treatment Twice a Day Treatment Plan Other Recommendations and Next Treatment progress gait at tolerated, Focus stairs when able. Recommendations To Nursing Amount of Assist Needed 1 Person Assist Discharge Recommendations PT Discharge Recommendations Home Home Health SNF Rehab Equipment Needed for Home Before FWW needed at d/c if going Discharge home.
[2018-05-26] MEDS: HYDROCODONE/ACET 5/325 TABLET 1 TAB PO (18:15)
[2018-05-26 19:59] VITALS: BP 120/53; PULSE 72; RESP 18; TEMP 36.9; O2SAT 93
[2018-05-26 21:06] LABS: Levetiracetam Keppra 4.5 mcg/mL
[2018-05-26] MEDS: dilTIAZem CD 180 MG CAP PO (21:15)
[2018-05-26] MEDS: levETIRAcetam 250 MG TABLET 500 MG PO (21:15)
[2018-05-26] MEDS: PHENYTOIN ER 100 MG CAPSULE 300 MG PO (21:15)
[2018-05-26] MEDS: DOCUSATE 100 MG CAPSULE PO (21:15)
[2018-05-27] VITALS: O2SAT 93
[2018-05-27 00:25] VITALS: BP 115/58; PULSE 68; RESP 15; TEMP 36.6; O2SAT 93
[2018-05-27] MEDS: LORazepam 0.5 MG TABLET PO (00:26)
[2018-05-27 06:02] LABS: Alanine Aminotransferase 45 IU/L (9-52); Albumin 3.5 g/dL (3.5-5.0); Albumin Globulin Ratio 1.4 (1.0-2.8); Alkaline Phosphatase 108 U/L (38-126); Aspartate Aminotransferase 40 IU/L (14-36); BUN Creatinine Ratio 32.5 (6-22); Bilirubin Total 0.2 mg/dL (0.2-1.3); Blood Urea Nitrogen 13 mg/dL (7-17); Calcium 8.8 mg/dL (8.4-10.2); Carbon Dioxide 30 mmol/L (22-32); Chloride 102 mmol/L (98-107); Estimated Glomerular Filt Rate > 60.0 mL/min (>60); Globulin 2.5 g/dL (1.7-4.1); Glucose 92 mg/dL (80-110); HEMOLYSIS < 15 (0-50); Phenytoin / Dilantin 17.7 ug/mL (10-20); Potassium 4.4 mmol/L (3.4-5.1); Sodium 140 mmol/L (137-145)
[2018-05-27 06:13] VITALS: BP 105/51; PULSE 69; RESP 18; TEMP 36.8; O2SAT 97
[2018-05-27] MEDS: HYDROCODONE/ACET 5/325 TABLET 1 TAB PO (08:33)
[2018-05-27] MEDS: LORATADINE 10 MG TABLET PO (08:34)
[2018-05-27] MEDS: DOCUSATE 100 MG CAPSULE PO (08:34)
[2018-05-27] MEDS: ENOXAPARIN 40 MG/0.4 ML SYRINGE SUBCUT (08:34)
[2018-05-27] MEDS: CEFAZOLIN 2 GM/100 ML FROZ.PIGGY IV (08:37)
[2018-05-27] MEDS: SODIUM CHLORIDE 0.9% FLUSH 10 ML IV (08:38)
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
[2018-05-27 10:35] VITALS: O2SAT 96
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
--- NOTE | 2018-05-27 11:15 | OT.IP.TRT ---
Current Diagnoses Spinal stenosis, site unspecified (05/22/18) Difficulty in walking, not elsewhere classified (05/22/18) Repeated falls (05/22/18) Occupational Therapy Treatment Note M2 OT-IP Current Condition Start: 05/23/18 16:07 Freq: Status: Active Protocol: Document 05/23/18 16:08 [facility] (Rec: 05/23/18 16:39 [facility] [id number]) Occupational Therapy Current Condition Current Condition Evaluation Date 05/23/18 Treatment Diagnosis GLF , UTI ,weakness M3 OT- IP Subjective and Pain Start: 05/23/18 16:07 Freq: Status: Active Protocol: Document 05/27/18 11:11 [facility] (Rec: 05/27/18 11:15 [facility] [id number]) OT- Subjective Occupational Therapy Visit Type Type Treatment Note Visit Start Time 10:37 Visit Stop Time 10:45 Total Visit Minutes 8 Notes Finalized all OT safety suggestions with pt as leaving today. Suggested may be helpful to have FWW/4WW to get from the car to the front door and another FWW/4WW to use on the main level. Pt to have friends assist for needs. Pt going home today.
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
--- NOTE | 2018-05-27 15:37 | PC.NURSE ---
Pts number not valid, called three times to get her Dr appt time and date to her. No other contact information on her demographics.
== END 2018-05-27 11:45 | disposition home or self-care (01) | DRG 556 ==
LOC: ED 14:04 → AC 17:07
PROVIDERS: Internal Medicine; Nurse Practitioner Adult Health; Admitting Provider Internal Medicine; Emergency Provider Internal Medicine; Visit Provider Internal Medicine
DX: M62.838 Other muscle spasm (principal); N39.0 Urinary tract infection, site not specified; T42.0X5A Adverse effect of hydantoin derivatives, initial encounter; M62.81 Muscle weakness (generalized); G40.909 Epilepsy, unspecified, not intractable, without status epilepticus; I48.0 Paroxysmal atrial fibrillation; R74.0 Nonspecific elevation of levels of transaminase and lactic acid dehydrogenase [LDH]; B95.7 Other staphylococcus as the cause of diseases classified elsewhere; W18.30XA Fall on same level, unspecified, initial encounter; I10 Essential (primary) hypertension
CPT/HCPCS: 36415; 72040; 72131; 72192; 80053; 80177; 80184; 80185; 81001; 83735; 84100; 85025; 87077; 87086; 87186; 93005; 97110; 97116; 97127; 97162; 97166; 97530; 97535; 99283; 99284; J0690; J1650; J2060

== ENCOUNTER 2018-06-13 17:31 | Observation (INO) | payer OTHER, SELFPAY ==
[2018-06-13] VITALS (8 sets, daily range): BP systolic 115–142; BP diastolic 55–71; PULSE 67–74; RESP 9–17; TEMP 35.9–36.4; O2SAT 91–98; BMI 29.2
[2018-06-13] MEDS: SODIUM CHLORIDE 0.9% 1,000 ML 1000 ML IV (18:01)
[2018-06-13] MEDS: ONDANSETRON 4 MG/2 ML INJ IV (18:07)
[2018-06-13 18:12] LABS: Add Manual Diff / Slide Review NO; Basophils Absolute Auto 0 /uL (0-100); Basophils Percent Auto 0.4 % (0-2); Eosinophils Absolute Auto 0 /uL (0-450); Eosinophils Percent Auto 0.2 % (2-4); Hematocrit 40.3 % (36-46); Hemoglobin 13.3 g/dL (12.0-16.0); Lymphocytes Absolute Auto 900 /uL (1100-4500); Lymphocytes Percent Auto 10.4 % (25-40); Mean Corpuscular Hemoglobin 30.2 PG (26-34); Mean Corpuscular Volume 91.4 fL (80-100); Monocytes Absolute Auto 400 /uL (0-900); Monocytes Percent Auto 4.4 % (3-14); Neutrophils Absolute Auto 7700 /uL (1500-7000); Neutrophils Percent Auto 84.6 % (50-75); Platelet Count 224 X10^3/uL (150-400); Red Blood Cell Count 4.41 X10^6/uL (4.0-5.2); Red Cell Distribution Width 14.5 % (11.6-14.8); White Blood Cell Count 9.1 X10^3/uL (4.5-11.0)
[2018-06-13 18:23] LABS: Alanine Aminotransferase 17 IU/L (9-52); Albumin 3.9 g/dL (3.5-5.0); Albumin Globulin Ratio 1.3 (1.0-2.8); Alkaline Phosphatase 110 U/L (38-126); Aspartate Aminotransferase 17 IU/L (14-36); Bilirubin Total 0.2 mg/dL (0.2-1.3); Blood Urea Nitrogen 14 mg/dL (7-17); Calcium 8.7 mg/dL (8.4-10.2); Carbon Dioxide 29 mmol/L (22-32); Chloride 104 mmol/L (98-107); Estimated Glomerular Filt Rate > 60.0 mL/min (>60); Glucose 103 mg/dL (80-110); HEMOLYSIS < 15 (0-50); Lipase 28 U/L (23-300); Potassium 3.9 mmol/L (3.4-5.1); Sodium 140 mmol/L (137-145); Total Protein 6.9 g/dL (6.3-8.2)
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
[2018-06-13 18:34] LABS: Phenytoin / Dilantin 16.6 ug/mL (10-20)
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
[2018-06-13] MEDS: LORazepam 2 MG/ML SYRINGE 1 MG IV (19:14)
--- NOTE | 2018-06-13 19:36 | PC.NURSE ---
Pt feeling less dizzy and nausea is better.
--- NOTE | 2018-06-13 22:19 | PC.NURSE ---
2205 - Patient admitted to room 209. Brought over on stretcher by nursing staff. Able to scoot self over to bed with slider board and assistance. Alert and oriented, but unable to sit up due to dizziness. Oriented to room and call light, call light within reach.
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
[2018-06-14] VITALS (12 sets, daily range): BP systolic 103–140; BP diastolic 51–73; PULSE 67–72; RESP 16; TEMP 36.4–36.6; O2SAT 92–98
[2018-06-14] MEDS: DEXTROSE 5%-0.9% NS 1,000 ML 100 ML IV ×3 (00:40→21:06)
[2018-06-14] MEDS: levETIRAcetam 250 MG TABLET 500 MG PO ×3 (01:25→21:05)
[2018-06-14] MEDS: PHENobarbital 32.4 MG TABLET 97.2 MG PO ×2 (01:30→21:14)
[2018-06-14] MEDS: LORazepam 2 MG/ML SYRINGE 1 MG IM (01:39)
[2018-06-14] MEDS: PHENYTOIN ER 100 MG CAPSULE PO ×2 (02:26→09:25)
[2018-06-14] MEDS: SUMAtriptan 6 MG/0.5 ML VIAL SUBCUT (04:10)
[2018-06-14 06:09] LABS: Add Manual Diff / Slide Review NO; Basophils Absolute Auto 0 /uL (0-100); Basophils Percent Auto 0.5 % (0-2); Eosinophils Absolute Auto 100 /uL (0-450); Eosinophils Percent Auto 1.1 % (2-4); Hematocrit 36.7 % (36-46); Hemoglobin 12.3 g/dL (12.0-16.0); Lymphocytes Absolute Auto 1500 /uL (1100-4500); Lymphocytes Percent Auto 24.2 % (25-40); Mean Corpuscular HGB Conc 33.5 % (30-36); Mean Corpuscular Hemoglobin 30.6 PG (26-34); Mean Corpuscular Volume 91.4 fL (80-100); Monocytes Absolute Auto 700 /uL (0-900); Neutrophils Absolute Auto 3900 /uL (1500-7000); Neutrophils Percent Auto 63.2 % (50-75); Platelet Count 203 X10^3/uL (150-400); Red Blood Cell Count 4.02 X10^6/uL (4.0-5.2); Red Cell Distribution Width 14.2 % (11.6-14.8); White Blood Cell Count 6.1 X10^3/uL (4.5-11.0)
[2018-06-14 06:11] LABS: Blood Urea Nitrogen 10 mg/dL (7-17); Calcium 8.5 mg/dL (8.4-10.2); Carbon Dioxide 27 mmol/L (22-32); Chloride 108 mmol/L (98-107); Estimated Glomerular Filt Rate > 60.0 mL/min (>60); Glucose 106 mg/dL (80-110); HEMOLYSIS < 15 (0-50); Potassium 3.6 mmol/L (3.4-5.1); Sodium 140 mmol/L (137-145)
--- NOTE | 2018-06-14 06:46 | PC.NURSE ---
Pt A and O x 4, VSS. C/o ADKINS and pain when elevating her head. 1 mg IVP lorazepam helped and 6 mg Imitrex helpful as well. Pt is tolerating IVF well, up to BSC and notes dizziness. Able to sleep. LS clear and NSR on telemetry.
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
[2018-06-14] MEDS: ENOXAPARIN 40 MG/0.4 ML SYRINGE SUBCUT (09:20)
[2018-06-14] MEDS: LORazepam 2 MG/ML SYRINGE 1 MG IV (09:29)
--- NOTE | 2018-06-14 09:36 | PC.NURSE ---
Day shift: Per Dr Young it is OK to give Pt PO meds with sips of water.
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
--- NOTE | 2018-06-14 16:13 | PC.NURSE ---
Addendum entered by Orquidea Hong R.N. 06/14/18 21:41: Relatively uneventful evening. Tele NSR per ICU staff IVF continue as per orders. Call light w/in reach, bed alarm on for pt safety. Continue w/plan of care. Original Note: Addendum entered by Orquidea Hong R.N. 06/14/18 18:13: Med w/meclizine at 1700 w/fair relief Med w/zofran for nausea w/good relief. Original Note: Addendum entered by Orquidea Hong R.N. 06/14/18 16:18: Tele showing NSR per ICU staff. Original Note: Pt resting quietly at this time. Assisted to BR w/o incidence. Lungs clear/diminished, SpO2 95% 1L O2. Tele in place. IV D5NS infusing @ 100cc/hr via pump into LAC w/o incidence. Call light w/in reach.
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
[2018-06-14] MEDS: MECLIZINE HCL 12.5 MG TABLET 25 MG PO (16:58)
[2018-06-14] MEDS: ONDANSETRON 4 MG/2 ML INJ IV (17:51)
[2018-06-14] MEDS: dilTIAZem CD 180 MG CAP PO (21:05)
[2018-06-14] MEDS: PHENYTOIN ER 100 MG CAPSULE 300 MG PO (21:06)
[2018-06-15] VITALS (10 sets, daily range): BP systolic 123–143; BP diastolic 60–87; PULSE 58–75; RESP 16; TEMP 36.4–36.9; O2SAT 91–100
[2018-06-15] MEDS: LORazepam 2 MG/ML SYRINGE 1 MG IV ×2 (00:01→23:46)
[2018-06-15 05:41] LABS: Add Manual Diff / Slide Review NO; Basophils Absolute Auto 0 /uL (0-100); Basophils Percent Auto 0.5 % (0-2); Eosinophils Absolute Auto 100 /uL (0-450); Eosinophils Percent Auto 2.4 % (2-4); Hematocrit 34.6 % (36-46); Hemoglobin 11.7 g/dL (12.0-16.0); Lymphocytes Absolute Auto 1700 /uL (1100-4500); Lymphocytes Percent Auto 41.3 % (25-40); Mean Corpuscular HGB Conc 33.9 % (30-36); Mean Corpuscular Hemoglobin 30.6 PG (26-34); Mean Corpuscular Volume 90.4 fL (80-100); Monocytes Absolute Auto 500 /uL (0-900); Monocytes Percent Auto 11.7 % (3-14); Neutrophils Absolute Auto 1800 /uL (1500-7000); Neutrophils Percent Auto 44.1 % (50-75); Platelet Count 165 X10^3/uL (150-400); Red Blood Cell Count 3.83 X10^6/uL (4.0-5.2); Red Cell Distribution Width 14.3 % (11.6-14.8); White Blood Cell Count 4.1 X10^3/uL (4.5-11.0)
[2018-06-15 06:01] LABS: Blood Urea Nitrogen 6 mg/dL (7-17); Calcium 8.5 mg/dL (8.4-10.2); Carbon Dioxide 30 mmol/L (22-32); Chloride 106 mmol/L (98-107); Estimated Glomerular Filt Rate > 60.0 mL/min (>60); Glucose 96 mg/dL (80-110); HEMOLYSIS < 15 (0-50); Potassium 3.6 mmol/L (3.4-5.1); Sodium 140 mmol/L (137-145)
[2018-06-15] MEDS: DEXTROSE 5%-0.9% NS 1,000 ML 100 ML IV (06:19)
[2018-06-15] MEDS: MECLIZINE HCL 12.5 MG TABLET 25 MG PO ×3 (06:22→18:59)
--- NOTE | 2018-06-15 06:39 | PC.NURSE ---
Pt given prn Meclizine 25 mg po at 0630 per WET END TESTER request. Advised patient WET END TESTER would like her to be up in chair for breakfast at 0800. She asked if she could sleep until then, is sleeping.
--- NOTE | 2018-06-15 08:30 | PC.NURSE ---
Assess- Pt is upset as she does not want to be discharged today. She feels that because she was nauseous and having emesis prior to coming into the hospital that something else is going on with her. She states that she had an episode of Vertigo last year, this is the second time that it has happened. Pt up with 2 pa as she was pulling at her pulse ox and iv lines. She was angry but has calmed down at this time. Pt took her medications. She drank two cups of tea and half of her chicken broth, bites of jellow. BS are CTA, and pt is no longer on O2 as her sats are 94%. Up to the bathroom twice, U/A sent. Pt is unsteady on her feet.
[2018-06-15] MEDS: ENOXAPARIN 40 MG/0.4 ML SYRINGE SUBCUT (09:00)
[2018-06-15] MEDS: levETIRAcetam 250 MG TABLET 500 MG PO ×2 (09:00→21:24)
[2018-06-15 09:50] LABS: Bacteria Urine None Seen; RBC Urine None Seen (0-5/HPF); WBC Urine None Seen (0-5/HPF)
[2018-06-15 09:52] LABS: Appearance Urine UA CLEAR; Bilirubin Urine UA NEGATIVE (NEGATIVE); Color Urine UA YELLOW; Glucose Urine UA NEGATIVE (Negative); Ketones Urine UA NEGATIVE (NEGATIVE); Leukocyte Esterase Urine UA NEGATIVE (NEGATIVE); Nitrite Urine UA NEGATIVE (Negative); Occult Blood Urine UA TRACE-LYSED (Negative); Protein Urine UA NEGATIVE (Negative); Urobilinogen Urine UA 0.2 E.U./dL (0.2); pH Urine UA 6.5 (4.5-8.0)
[2018-06-15 10:02] LABS: Culture Indicated Urine Cult Not Indicated; Squamous Epithelial Cell Urine 0-1 /HPF
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
--- NOTE | 2018-06-15 11:10 | PT.IPTN ---
Physical Therapy Treatment Note M2 PT-IP Current Condition Start: 06/14/18 15:05 Freq: NEEDED Status: Active Protocol: Document 06/14/18 13:15 [facility] (Rec: 06/14/18 15:35 [facility] [id number]) Physical Therapy Current Condition Current Condition Evaluation Date 06/14/18 Treatment Diagnosis Nausea, vomiting, Dizziness, impaired gait and activity tolerance M3 PT-IP Subjective Start: 06/14/18 15:05 Freq: NEEDED Status: Active Protocol: Document 06/15/18 11:10 [facility] (Rec: 06/15/18 12:13 [facility] [id number]) Subjective Physical Therapy Visit Type Visit Start Time 11:10 Visit Stop Time 11:35 Total Visit Minutes 25 Notes Chanel PT aide assisted with session, present during treatment Number of CASHIERS SUPERVISOR Visits 0 Physical Therapy Visit Comments Patient Comments pt reluctant initially to get OOB, but is agreeable. She states her dizziness is better but not yet resolved. M4 PT-IP Mobility and Gait Start: 06/14/18 15:05 Freq: NEEDED Status: Active Protocol: Document 06/15/18 11:10 [facility] (Rec: 06/15/18 12:13 [facility] [id number]) PT-Bed Mobility Assessment Supine to Sit Supine to Sit Minimal Assistance Scooting Scooting to Edge of Bed Standby Assistance PT-Transfer Assessment Sit to and From Stand Sit to and from Stand Contact Guard Assistance Equipment Transfer Assistive Device Gait Belt Front Wheeled Walker Transfers Transfer Destination Chair Toilet Transfer Technique Stand Step Pivot Transfer Ability Level of Assist Contact Guard Assistance Comments Mobility Comments Pt had a loss of balance x1 where she grabbed the grab bar in the BR to steady herself. Able to get onto the toilet with CGA, doffed briefs with CGA for balance (pt requested to doff brief herself with leaning on wall and using rail ). Gait Assessment Gait Gait Assistance Required: Contact Guard Assist Distance (Feet) 30 Assistive Devices Assistive Device Gait Belt Front Wheeled Walker Gait Deviations General Gait Pattern Decreased Stride Length Decreased Feet Clearance Flexed Trunk Narrow Based Gait Factors Limiting Gait Function Factors Limiting Gait Function Decreased Activity Tolerance Decreased Strength Difficulty Following Directions Poor Balance Poor Safety Awareness Comments Gait Comments Pt left FWW in BR and used counter, bed, and railing to ambulate from toilet to chair x8 ft, CGA. M5 PT-IP Objective Assessments Start: 06/14/18 15:05 Freq: NEEDED Status: Active Protocol: Document 06/14/18 13:15 [facility] (Rec: 06/14/18 15:35 [facility] [id number]) Strength Lower Extremity Strength Assessment Within Functional Limits Other Assessments Other Other Assessments no nystagmus or dizziness with eye movements and slow head on neck movements. Pt's cervical spine ROM limited to 25 degrees bilaterally with rotation and 15 degrees into extension, c/o pain but no dizziness with head movements. M7 PT-IP Assessment and Plan Start: 06/14/18 15:05 Freq: NEEDED Status: Active Protocol: Document 06/15/18 11:10 [facility] (Rec: 06/15/18 12:13 [facility] [id number]) PT Summary Assessment and Plan Summary Assessment Summary Pt able to ambulate 30 ft, final 8 ft she did not use the FWW instead opted to use railing, bed, and counter to stabilize her with ambulation. Pt has impaired safety awareness, and fatigues rapidly. She admits to being dizzy after ambulating but non -compliant with further assessment at this time. Pt is unsteady with ambulation, and at risk for falls due to multiple factors. She is not safe to return home at this point, and would greatly benefit from SNF rehabilitation upon d/c to progress her mobility, safety with functional activities, and to promote a safe d/c. Goals Bed Mobility Goal Independent Transfer Goal Independent Gait Goal Standby Assistance Four Wheel Walker Gait Distance 150 Other Goals up/down 5 steps with L ascending rail and CGA STG: SBA gait with 4WW and 50 ft, in 1 day Days to Meet Goals 5 Frequency of Treatment Frequency Of Treatment Twice a Day Treatment Plan Other Recommendations and Next Treatment assess dizziness if compliant, Focus progress gait and activity toward household distances safely. Recommendations To Nursing Amount of Assist Needed 1 Person Assist Discharge Recommendations PT Discharge Recommendations SNF Rehab Other Discharge Recommendations SNF vs home with HH (although pt could not get HH d/t insurance issues previously this year)
[2018-06-15] MEDS: SUMAtriptan 6 MG/0.5 ML VIAL SUBCUT ×2 (12:30→18:59)
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
--- NOTE | 2018-06-15 15:08 | CM.DPC ---
DCP/continued: Reviewed chart. Per MD, patient remains hospitalized under OBS status. Current recommendation from therapy is SNF. Patient recently discharged from [facility] (approximately 3w[facility]) ago at that time patient went home with outpatient follow up recommendations. Last visit CM team unable to secure HH secondary to patient's location and insurance. None of the agencies that service area have contract with [facility] [employer]. CATERING OPERATIONS MANAGER spent approximately 45 minutes with patient today discussing next steps. Patient reports that she does not feel like she is prepared to go home. Patient reports continued blurred vision, and headache. RN notified and medication provided for headache. Patient has been seen by therapy and current recommendation is SNF. Patient is whom resides alone. Patient does have supportive friends but reports that they are worn out. Prior visit patient adamantly refused SNF because her spouse at [facility] approximately 18 months ago. Patient continues to be reluctant about SNF but aware of recommendation and willing to consider. Notified patient that CM team foreman would need to check with insurance on Saturday06-16-18 to determine contracted providers. Patient reports she does not want to go to [facility]. Patient concerned about her continued symptoms of vertigo and reports that the episodes just come randomly. Patient has neurologist that she is established with Dr. Dow [phone]. Patient is requesting that Laquita HUERTA speak with his office prior to discharge. PARTHA provided this information to hospitalist/Dr. Young. Patient considering SNF. CATERING OPERATIONS MANAGER updated MD and will follow up in AM on 06-16-18 with MD, insurance and patient. P: Pending. PARTHA Rivera
[2018-06-15] MEDS: dilTIAZem CD 180 MG CAP PO (21:23)
[2018-06-15] MEDS: PHENobarbital 32.4 MG TABLET 97.2 MG PO (21:23)
[2018-06-15] MEDS: PHENYTOIN ER 100 MG CAPSULE 300 MG PO (21:24)
--- NOTE | 2018-06-15 22:16 | PC.NURSE ---
Shift note: Patient denies vertigo this afternoon/evening, reporting moderate migraine headache pain to left side of face. SQ Imitrex given, shortly after patient fell asleep & slept for about 1.5 hours. When awake she denied headache pain. Patient cooperative although at times can become irritated at staff. Does not answer direct questions with yes/no, or descriptive answers for how she would like her care but rather answers with well I don't know and should I? Apologized to me for being a pain in the ass. Questioned why she was on clear liquids, I spoke with Dr Young about this and he advanced her diet to regular. Pt able to order food & dinner tray sent up from dietary for patient. IVF infusing to LAC with pump alarming distal occlusion at times, appears positional r/t IV site, flushing & able to get IVF infusing again with no difficulty. Heather remains oriented x 3 and situation, using call button appropriately for assistance. Ambulating to BR with SBA & use of FWW. Call button in reach & alarm active for safety.
[2018-06-16] VITALS (9 sets, daily range): BP systolic 122–139; BP diastolic 47–68; PULSE 71–76; RESP 14–18; TEMP 36.3–36.9; O2SAT 93–97
[2018-06-16] MEDS: MECLIZINE HCL 12.5 MG TABLET 25 MG PO ×3 (00:13→17:57)
[2018-06-16] MEDS: SUMAtriptan 6 MG/0.5 ML VIAL SUBCUT ×2 (00:37→06:27)
[2018-06-16] MEDS: DEXTROSE 5%-0.9% NS 1,000 ML 100 ML IV (03:21)
[2018-06-16 05:36] LABS: Add Manual Diff / Slide Review NO; Basophils Absolute Auto 0 /uL (0-100); Basophils Percent Auto 0.3 % (0-2); Eosinophils Absolute Auto 100 /uL (0-450); Eosinophils Percent Auto 2.3 % (2-4); Hemoglobin 11.2 g/dL (12.0-16.0); Lymphocytes Absolute Auto 1600 /uL (1100-4500); Lymphocytes Percent Auto 28.8 % (25-40); Mean Corpuscular Hemoglobin 30.7 PG (26-34); Mean Corpuscular Volume 90.5 fL (80-100); Monocytes Absolute Auto 700 /uL (0-900); Monocytes Percent Auto 12.9 % (3-14); Neutrophils Absolute Auto 3100 /uL (1500-7000); Neutrophils Percent Auto 55.7 % (50-75); Platelet Count 181 X10^3/uL (150-400); Red Blood Cell Count 3.65 X10^6/uL (4.0-5.2); Red Cell Distribution Width 13.7 % (11.6-14.8); White Blood Cell Count 5.5 X10^3/uL (4.5-11.0)
[2018-06-16 05:52] LABS: Blood Urea Nitrogen 6 mg/dL (7-17); Calcium 8.3 mg/dL (8.4-10.2); Carbon Dioxide 32 mmol/L (22-32); Chloride 105 mmol/L (98-107); Estimated Glomerular Filt Rate > 60.0 mL/min (>60); Glucose 113 mg/dL (80-110); HEMOLYSIS < 15 (0-50); Potassium 3.2 mmol/L (3.4-5.1); Sodium 142 mmol/L (137-145)
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
--- NOTE | 2018-06-16 06:34 | PC.NURSE ---
Pt was asked to toilet as she had not urinated for the entire noc shift and she refused. LEAD PL SQL DEVELOPER and RN advised her that we would have to bladder scan her then and she became angry and accused staff of threatening her. She says she left instructions for staff not to disturb her. Provided teaching on urology care and left room. Pt then voided 1000 mLs and was slightly incontinent. Care was clustered but possibly overwhelming. Staff approach was appropriate. 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
[2018-06-16] MEDS: POTASSIUM CHLORIDE 40 MEQ in SODIUM CHLORIDE 0.9% 500 ML 130 ML IV (09:36)
[2018-06-16] MEDS: POTASSIUM CHLORIDE 20 MEQ TAB PO ×2 (09:37→17:57)
[2018-06-16] MEDS: levETIRAcetam 250 MG TABLET 500 MG PO (09:38)
[2018-06-16] MEDS: ENOXAPARIN 40 MG/0.4 ML SYRINGE SUBCUT (09:38)
--- NOTE | 2018-06-16 12:28 | PT.IPTN ---
Physical Therapy Treatment Note M2 PT-IP Current Condition Start: 06/14/18 15:05 Freq: NEEDED Status: Active Protocol: Document 06/14/18 13:15 [facility] (Rec: 06/14/18 15:35 [facility] [id number]) Physical Therapy Current Condition Current Condition Evaluation Date 06/14/18 Treatment Diagnosis Nausea, vomiting, Dizziness, impaired gait and activity tolerance M3 PT-IP Subjective Start: 06/14/18 15:05 Freq: NEEDED Status: Active Protocol: Document 06/16/18 10:00 (Rec: 06/16/18 12:27 [id number]) Subjective Physical Therapy Visit Type Type Treatment Note Visit Start Time 10:00 Visit Stop Time 10:50 Total Visit Minutes 50 Notes co-treat with OT. RN reports pt was agitative this morning. Number of ENGRAVER HAND SOFT METALS Visits 0 Physical Therapy Visit Comments Patient Comments Pt states her ADKINS is getting better since IE. Pt states her ADKINS and dizziness and vertigo tends to be reproduced with quick head turns. M4 PT-IP Mobility and Gait Start: 06/14/18 15:05 Freq: NEEDED Status: Active Protocol: Document 06/16/18 10:00 HH (Rec: 06/16/18 12:27 [id number]) PT-Bed Mobility Assessment Rolling Type of Rolling Bilateral Level of Assist Standby Assistance Supine to Sit Supine to Sit Standby Assistance Sit to Supine Sit to Supine Standby Assistance Scooting Scooting to Edge of Bed Standby Assistance PT-Transfer Assessment Sit to and From Stand Sit to and from Stand Standby Assistance Equipment Transfer Assistive Device Gait Belt Front Wheeled Walker Transfers Transfer Destination Bed Toilet Transfer Technique Stand Step Pivot Transfer Ability Level of Assist Standby Assistance Comments Mobility Comments Pt got OOB and amb with 2p to bathroom for toileting and return to bed. Pt requires overall SBA with slow movements due to fear of vertigo/ dizziness. Pt did not report episode of spinning sensation today. Gait Assessment Gait Gait Assistance Required: Standby Assistance Distance (Feet) 20 Able to Maintain Weight Bearing Status Yes During Gait Assistive Devices Assistive Device Gait Belt Front Wheeled Walker Gait Deviations General Gait Pattern Antalgic Decreased Stride Length Decreased Feet Clearance Flexed Trunk Factors Limiting Gait Function Factors Limiting Gait Function Decreased Activity Tolerance Decreased Strength Difficulty Following Directions Pain Poor Balance Poor Safety Awareness Comments Gait Comments Pt with decreased R knee flexion and R antalgic gait. Denies dizziness. M5 PT-IP Objective Assessments Start: 06/14/18 15:05 Freq: NEEDED Status: Active Protocol: Document 06/14/18 13:15 RCC (Rec: 06/14/18 15:35 RCC [id number]) Strength Lower Extremity Strength Assessment Within Functional Limits Other Assessments Other Other Assessments no nystagmus or dizziness with eye movements and slow head on neck movements. Pt's cervical spine ROM limited to 25 degrees bilaterally with rotation and 15 degrees into extension, c/o pain but no dizziness with head movements. M6 PT-IP Treatment Start: 06/14/18 15:05 Freq: NEEDED Status: Active Protocol: Document 06/16/18 10:00 HH (Rec: 06/16/18 12:27 [id number]) Physical Therapy Treatment Other Treatments Other Treatment Performed Newnan Loredo pike test : slight positive during head turn to left. this test might not be accuracte due to limited room with her bed and limited cervical ROM. Pt has difficulty to extend and ROT. However, she does show slight vertigo on B eyes with L head turn but negative on R head turn. Ilda manuever was performed after. Pt did c/o slight dizziness after tx. M7 PT-IP Assessment and Plan Start: 06/14/18 15:05 Freq: NEEDED Status: Active Protocol: Document 06/16/18 10:00 HH (Rec: 06/16/18 12:27 [id number]) PT Summary Assessment and Plan Summary Assessment Summary Pt showed reduced assistance needed for overall mobility but cont demonstrates slow movements due to fear of vertigo and dizziness. Pt presents possible BPPV on L inner ears due to positive Bruce loredo pike test. But test result might not be accute due to limited spaces with her bed and limited cervical rotation and extension. Will reassess again for next session. In my opinon, d/c SNF would be ideal due to her decreased overall mobility and fall risks but pt verbally states she does not want to go to SNF. Pt might be benefit from outpatient vestibular tx as well due to possible BPPV. Goals Bed Mobility Goal Independent Transfer Goal Independent Gait Goal Standby Assistance Four Wheel Walker Gait Distance 150 Other Goals up/down 5 steps with L ascending rail and CGA STG: SBA gait with 4WW and 50 ft, in 1 day (goal met 06/15/18 ) Days to Meet Goals 5 Frequency of Treatment Frequency Of Treatment Twice a Day Treatment Plan Other Recommendations and Next Treatment reassess her vertigo and Focus dizziness progress gait, standing balance, stair trial if d/c home Recommendations To Nursing Amount of Assist Needed 1 Person Assist Discharge Recommendations PT Discharge Recommendations Home Home Health SNF Rehab Outpatient PT Other Discharge Recommendations SNF vs home with HH (although pt could not get HH d/t insurance issues previously this year) or outpatient PT for possible BPPV.
--- NOTE | 2018-06-16 12:31 | OT.IP.TRT ---
Occupational Therapy Treatment Note M2 OT-IP Current Condition Start: 06/14/18 15:46 Freq: Status: Active Protocol: Document 06/14/18 15:47 [facility] (Rec: 06/14/18 16:40 [facility] [id number]) Occupational Therapy Current Condition Current Condition Evaluation Date 06/14/18 Treatment Diagnosis Nausea, vomiting, dizziness Diagnosis Onset Date 06/13/18 Weight Bearing Status Weight Bearing Status Weight Bear as Tolerated M3 OT- IP Subjective and Pain Start: 06/14/18 15:46 Freq: Status: Active Protocol: Document 06/16/18 12:12 [facility] (Rec: 06/16/18 12:31 [facility] [id number]) OT- Subjective Occupational Therapy Visit Type Type Treatment Note Visit Start Time 10:00 Visit Stop Time 10:55 Total Visit Minutes 55 Occupational Therapy Visit Comments Patient Comments Pt agreeable to do modified assessments with OT/PT for BPPV due to limitation of pt's neck and back mobility. See PT txt for results. Cotxt OT/PT due to nursing states as pt having increased agitation to have 2nd person present in the room. Patient/Caregiver Goals Pt wanting to go home but has fear of having violent dizziness and whole room spinning, symptoms return. OT Pain Assessment Pain When Pain Assessed At Rest Pain Present Pain Present Pain Reported M4 OT- IP ADL's Start: 06/14/18 15:46 Freq: Status: Active Protocol: Document 06/16/18 12:12 [facility] (Rec: 06/16/18 12:31 [facility] [id number]) OT ADL-Toileting General Evaluation Toileting Ability Standby Assistance Comments OT Toileting Comments Pt needing only management for IV pole otherwise able to do all toileting and hygiene needs. M5 OT- IP IADL's Start: 06/14/18 15:46 Freq: Status: Active Protocol: Document 06/14/18 15:47 [facility] (Rec: 06/14/18 16:40 [facility] [id number]) OT-Instrumental Activities of Daily Living Medication Management Medication Management Comments Pt states able to do own medications prior. Money Management Money Management Comments Pt able to do simple math calculations and no deficits noted. Meal Preparation Meal Preparation Comments Pt able to use 4ww to assist while doing her cooking at home. In addition, pt had friends who brought in meals for her. Mortician Investigator Mortician Investigator Comments Pt friends assisted. Driving Driving Comments Pt not driving as does not have a car. M6 OT- IP Functional Cognition Start: 06/14/18 15:46 Freq: Status: Active Protocol: Document 06/16/18 12:12 [facility] (Rec: 06/16/18 12:31 [facility] [id number]) Cognitive Factors Limiting Selfcare Function Cognitive Ability Level of Alertness Alert Patient Orientation Name Age Birthday Month Date Year Day of Week Place Situation Attention Span Ability Capable of Focused Attention Capable of Sustained Attention Memory Description Immediate Intact Short Term Impaired Alf Intact Working Intact Safety Awareness Underestimates Need for Assistance Problem Solving Ability Needs Assist to Identify Solutions Executive Function Ability Unable to Remember Details Cognitive Comments Cognitive Assessment Comments At times pt a bit hard of hearing and needing directions repeated. At times still needing increased time to process information, vc to keep fww close to her at all times. M7 OT- IP Mobility and Balance Start: 06/14/18 15:46 Freq: Status: Active Protocol: Document 06/16/18 12:12 [facility] (Rec: 06/16/18 12:31 [facility] [id number]) OT-Transfer Assessment Sit to and From Stand Sit to and from Stand Standby Assistance 1 Person Assistance Transfers Transfer Ability Standby Assistance 1 Person Assistance Technique Transfer Destination Bed Toilet Transfer Technique Stand Step Pivot Devices Transfer Assistive Devices Gait Belt Front Wheeled Walker Comments Mobility Comments Pt needing increased time to move, mainly due to pt is very cautious with her movements and needing FWW for balance. In addition per pt due to chronic back pain needing support of FWW for safety. OT- Gait Assessment Gait Gait Assistance Required: Standby Assistance Assistive Devices Assistive Device Gait Belt Front Wheeled Walker Comments Gait Ability Comments Pt able to walk in and out of the bathroom with SBA and assist for IV pole. Pt not wanting to walk any further at this time. OT- Balance Assessment Sitting Balance and Reactions Static Sitting Balance Ability Normal Dynamic Sitting Balance Ability Good Standing Balance and Reactions Static Standing Balance Ability Good Dynamic Standing Balance Ability Fair M8 OT- IP Objective Assessments Start: 06/14/18 15:46 Freq: Status: Active Protocol: Document 06/14/18 15:47 [facility] (Rec: 06/14/18 16:40 [facility] [id number]) OT Gross Range of Motion Upper Extremity Range of Motion Assessment Within Functional Limits OT Strength Comments Strength Comments BUE 4/5 M9 OT- IP Assessment and Plan Start: 06/14/18 15:46 Freq: Status: Active Protocol: Document 06/16/18 12:12 [facility] (Rec: 06/16/18 12:31 [facility] [id number]) OT Summary Assessment and Plan Potential Rehabilitation Potential Good Analytic Complexity at Evaluation Low Summary OT Impairments Pain Balance Functional Cognition Functional Mobility Bathing Progress Towards Goals Slow Progress due to Medical Issues Slow Progress due to Cognition Assessment Summary Pt low complexity and main barrier is dizziness which seems to increase with change in position of her head, in addition pt tends to move cautiously due to feel of getting, violently dizzy. Pt would continue to benefit from skilled rehab to focus on treating her possible BPPV symptoms and work on increasing overall strength, endurance, and safety with ADL 's and IADl needs. At this time pt still not wanting to go to skilled rehab and would rather go home. Goals Self-Feeding Goal Independent Grooming Goal Independent Dressing Goal Independent Toileting Goal Independent Bathing Goal Standby Assistance Toilet Transfer Goal Independent Shower Transfer Goal Independent Patient/Caregiver Education Goal Demonstrate Energy Conservation and Pacing Days to Meet Goals 4 Frequency of Treatment Frequency Of Treatment Once a Day Treatment Plan OT Treatment Plan ADL Training Functional Cognition Training Functional Mobility Patient/Family Education Discharge Planning Other Treatment Recommendations and Next shower Treatment Focus Discharge Recommendations OT Discharge Recommendations SNF Rehab Other Discharge Recommendations If pt does not qualify for SNF , home with home health, or outpt PT for vertigo possible BPPV. Home Equipment Needs tub bench,BSC
--- NOTE | 2018-06-16 15:34 | PC.NURSE ---
1500-assumed care of pt from outgoing shift. pt awake. walking around room. asked to call staff before she gets up as she is unsteady. pt states, well I have got to get ready because they are sending me home. I need my bra. and i have specialized underwear. where did they put my bra? if they threw it away I will b e livid. they made me take everything off when I got downstairs. pt found her bra in her clothing. and I found her bag of clothes in the closet. pt states I've got to get dressed. fluids still infusing.
--- NOTE | 2018-06-16 15:39 | CM.DPC ---
DCP/continued: Reviewed chart. Spoke with Dr. Nguyen this AM in rounds. She reports that patient is medically stable for discharge today. Patient remains in OBS status. Current recommendation from therapy is SNF. COMMERCIAL ART INSTRUCTOR met again with patient this afternoon re: d/c plan. Yesterday patient appeared to be somewhat agreeable to SNF today she is not. Patient seen again by therapy this afternoon specific for vertigo. Patient exhibits frustration with the process. Patient informed by Dr. Nguyen with COMMERCIAL ART INSTRUCTOR present that she no longer needs to remain hospitalized. Patient reports that she is unsure about going home because she is unsure when she will have another vertigo attack. Patient has follow up appointment with neurologist on 07-04-18. Patient offered option of SNF several times today. Patient continues to refuse. Currently [facility] attempting to obtain authorization for short stay. COMMERCIAL ART INSTRUCTOR spoke with Bessy this afternoon and she had not heard back from [facility]. However, patient refusing SNF and reports that she will go home. MD discussed option of patient doing outpatient therapy specific to vertigo at [facility]. Patient reports that she has no transportation but that it is close to her house. COMMERCIAL ART INSTRUCTOR provided patient with resources for f/u for outpatient therapy and transport in [facility]. COMMERCIAL ART INSTRUCTOR asked patient if she had ride home today. Patient up in room ambulating I with IV pole. Patient reports no. COMMERCIAL ART INSTRUCTOR spoke with RN and requested that she speak with tank charger about cab voucher if patient discharged home. At this time this is the anticipated plan. P: Home patient refusing SNF which is recommended by medical team. Patient provided with community resources for outpatient therapy and transport near her residence. PARTHA Rivera
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
--- NOTE | 2018-06-16 17:07 | OT.IP.TRT ---
Occupational Therapy Treatment Note M2 OT-IP Current Condition Start: 06/14/18 15:46 Freq: Status: Active Protocol: Document 06/14/18 15:47 [facility] (Rec: 06/14/18 16:40 [facility] [id number]) Occupational Therapy Current Condition Current Condition Evaluation Date 06/14/18 Treatment Diagnosis Nausea, vomiting, dizziness Diagnosis Onset Date 06/13/18 Weight Bearing Status Weight Bearing Status Weight Bear as Tolerated M3 OT- IP Subjective and Pain Start: 06/14/18 15:46 Freq: Status: Active Protocol: Document 06/16/18 16:39 [facility] (Rec: 06/16/18 17:07 [facility] [id number]) OT- Subjective Occupational Therapy Visit Type Type Treatment Note Visit Start Time 15:50 Visit Stop Time 16:30 Total Visit Minutes 15 Notes Saw pt with PT due to nursing stating safety concerns as pt agitated. OT able to do ADl's with pt for 15 minutes of the session. Occupational Therapy Visit Comments Patient Comments Pt agreeable to do therapy. OT Pain Assessment Pain When Pain Assessed At Rest Pain Present Pain Present Pain Reported M4 OT- IP ADL's Start: 06/14/18 15:46 Freq: Status: Active Protocol: Document 06/16/18 16:39 [facility] (Rec: 06/16/18 17:07 [facility] [id number]) OT ADL-Dressing General Eval Upper Body Dressing Ability Independent Lower Body Dressing Ability Independent Comments OT Dressing Comments Pt able to do her own dressing of t-shirt,bra, pullover and sweater, and pants ,socks and tie shoe with increased time and good safety. M5 OT- IP IADL's Start: 06/14/18 15:46 Freq: Status: Active Protocol: Document 06/14/18 15:47 [facility] (Rec: 06/14/18 16:40 [facility] [id number]) OT-Instrumental Activities of Daily Living Medication Management Medication Management Comments Pt states able to do own medications prior. Money Management Money Management Comments Pt able to do simple math calculations and no deficits noted. Meal Preparation Meal Preparation Comments Pt able to use 4ww to assist while doing her cooking at home. In addition, pt had friends who brought in meals for her. Line Installer Line Installer Comments Pt friends assisted. Driving Driving Comments Pt not driving as does not have a car. M6 OT- IP Functional Cognition Start: 01/26/19 15:46 Freq: Status: Active Protocol: Document 06/16/18 16:39 [facility] (Rec: 06/16/18 17:07 [facility] [id number]) Cognitive Factors Limiting Selfcare Function Cognitive Ability Level of Alertness Alert Patient Orientation Name Age Birthday Month Date Year Day of Week Place Situation Attention Span Ability Capable of Focused Attention Capable of Sustained Attention Ability to Follow Commands Able to Follow Multi-Step Commands Memory Description Immediate Intact Usp Intact Working Intact Safety Awareness Underestimates Need for Assistance Cognitive Comments Cognitive Assessment Comments Pt aware a bit impulsive but attributes to being upset and angry. Pt upset that she is back in the hospital, misses her who just recent pasted in a SNF, does not have anyone to assist her and afraid of the bout of violent dizziness coming back. OT- Vision and Hearing OT- Vision Assessment Vision Assessment Comments Pt did not complain of any dizziness or double vision in this joint session with PT. M7 OT- IP Mobility and Balance Start: 06/14/18 15:46 Freq: Status: Active Protocol: Document 06/16/18 16:39 [facility] (Rec: 06/16/18 17:07 [facility] [id number]) OT-Transfer Assessment Comments Mobility Comments PT able to use FWW to walk in the hallway with CGA, mainly due to pt's unpredictability and stubbornness, as pt admits herself. Pt asked to turn around at certain point in the hallway and preceded to continue to walk , at one point during the session lifting the walker and banging it on the floor. OT- Balance Assessment Sitting Balance and Reactions Static Sitting Balance Ability Normal Dynamic Sitting Balance Ability Normal Standing Balance and Reactions Static Standing Balance Ability Good Dynamic Standing Balance Ability Fair M8 OT- IP Objective Assessments Start: 06/14/18 15:46 Freq: Status: Active Protocol: Document 06/14/18 15:47 [facility] (Rec: 06/14/18 16:40 [facility] [id number]) OT Gross Range of Motion Upper Extremity Range of Motion Assessment Within Functional Limits OT Strength Comments Strength Comments BUE 4/5 M9 OT- IP Assessment and Plan Start: 06/14/18 15:46 Freq: Status: Active Protocol: Document 06/16/18 16:39 [facility] (Rec: 06/16/18 17:07 [facility] [id number]) OT Summary Assessment and Plan Potential Rehabilitation Potential Good Analytic Complexity at Evaluation Low Summary OT Impairments Pain Balance Functional Cognition Functional Mobility Bathing Progress Towards Goals Slow Progress due to Medical Issues Slow Progress due to Cognition Assessment Summary Pt doing better and independent with toileting and dressing needs, not able to assess showering, still recommend pt to have assist at home especially for IADL and showering needs. Pt insistent on not going to skilled rehab as would benefit from further assessment for BPPV possibilities, to continue to work on strengthening, endurance, and coping skills for stress management needs. Goals Bathing Goal Independent Patient/Caregiver Education Goal Demonstrate Energy Conservation and Pacing Days to Meet Goals 2 Frequency of Treatment Frequency Of Treatment Once a Day Treatment Plan OT Treatment Plan ADL Training Functional Cognition Training Functional Mobility Patient/Family Education Discharge Planning Other Treatment Recommendations and Next shower Treatment Focus Discharge Recommendations OT Discharge Recommendations SNF Rehab Other Discharge Recommendations If pt does not qualify for SNF , home with home health, otherwise home with assist from friends and outpt PT. Home Equipment Needs tub ,BSC
--- NOTE | 2018-06-16 18:56 | PT.IPTN ---
Physical Therapy Treatment Note M2 PT-IP Current Condition Start: 06/14/18 15:05 Freq: NEEDED Status: Active Protocol: Document 06/14/18 13:15 [facility] (Rec: 06/14/18 15:35 [facility] [id number]) Physical Therapy Current Condition Current Condition Evaluation Date 06/14/18 Treatment Diagnosis Nausea, vomiting, Dizziness, impaired gait and activity tolerance M3 PT-IP Subjective Start: 06/14/18 15:05 Freq: NEEDED Status: Active Protocol: Document 06/16/18 16:00 (Rec: 06/16/18 18:56 [id number]) Subjective Physical Therapy Visit Type Type Treatment Note Visit Start Time 16:00 Visit Stop Time 16:30 Total Visit Minutes 30 Notes co-treat with OT before pt d/c to home. Nursing and MD stated safety concerns due ot agitated about d/c planning. Pt informed by Dr. Nguyen that she is no longer needs to be hospitalized who will also has follow up appt with neurologist on 07/04/18. Number of HERBARIUM CURATOR Visits 0 Physical Therapy Visit Comments Patient Comments Pt denies ADKINS and vertigo today . Pt appears very agitated upon PT session. Pt cont to refuse d/c SNF and requested to d/c home today. M4 PT-IP Mobility and Gait Start: 06/14/18 15:05 Freq: NEEDED Status: Active Protocol: Document 06/16/18 16:00 [facility] (Rec: 06/16/18 18:56 [id number]) PT-Bed Mobility Assessment Rolling Type of Rolling Bilateral Level of Assist Standby Assistance Supine to Sit Supine to Sit Standby Assistance Sit to Supine Sit to Supine Standby Assistance Scooting Scooting to Edge of Bed Standby Assistance PT-Transfer Assessment Sit to and From Stand Sit to and from Stand Contact Guard Assistance Equipment Transfer Assistive Device Gait Belt Front Wheeled Walker Transfers Transfer Destination Bed Chair Transfer Technique Stand Step Pivot Transfer Ability Level of Assist Contact Guard Assistance Comments Mobility Comments Pt appeared very agitative this PM due to her current d/c plan. Pt was upset she was hospitalized again and she does not want to d/c to SNF due to his recently in a SNF. Pt did get OOB this pm but required CGA with gait belt since pt's impulsive and unpredictive behaviors today, as pt admits herself. Pt intentionally pickling solution maker and bang her FWW on the floor multiple times to show her frustration. Gait Assessment Gait Gait Assistance Required: Contact Guard Assist 2 Person Assist Distance (Feet) 300 Able to Maintain Weight Bearing Status Yes During Gait Assistive Devices Assistive Device Gait Belt Front Wheeled Walker Gait Deviations General Gait Pattern Antalgic Decreased Stride Length Decreased Feet Clearance Flexed Trunk Factors Limiting Gait Function Factors Limiting Gait Function Decreased Activity Tolerance Decreased Strength Difficulty Following Directions Pain Poor Balance Poor Safety Awareness Comments Gait Comments Pt amb from EOB to the hallway and returned back to bed for a total ~300 feet with FWW with CGA follwed by w/c with OT. Pt requires CGA due to her unpredictive and uncooperative behaviors. Pt at one point tried to cont amb while PT adjusting her gait belt. She also disregard therapist's suggestion to turn around and cont to walk. Pt also attempted to amb by picking up her FWW and disregard the lines and tubes on the floor when she got back to her room. Stair Climbing Assessment Evaluation Level of Assist On Stairs Contact Guard Assistance Devices Stair Climbing Assistive Devices Left Railing Right Railing Technique/Endurance Stair Climbing Direction Ascend and Descend Stair Climbing Technique Step Over Step Step to Step Number of Steps Climbed 3 Query Text: Stair Climbing Set # Repetitions (reps) 4 Comments Stair Climbing Comments step over ascending and step to descending. M5 PT-IP Objective Assessments Start: 06/14/18 15:05 Freq: NEEDED Status: Active Protocol: Document 06/14/18 13:15 [facility] (Rec: 06/14/18 15:35 [facility] [id number]) Strength Lower Extremity Strength Assessment Within Functional Limits Other Assessments Other Other Assessments no nystagmus or dizziness with eye movements and slow head on neck movements. Pt's cervical spine ROM limited to 25 degrees bilaterally with rotation and 15 degrees into extension, c/o pain but no dizziness with head movements. M6 PT-IP Treatment Start: 06/14/18 15:05 Freq: NEEDED Status: Active Protocol: Document 06/16/18 10:00 [facility] (Rec: 06/16/18 12:27 [facility] [id number]) Physical Therapy Treatment Other Treatments Other Treatment Performed Bruce Clark pike test : slight positive during head turn to left. this test might not be accuracte due to limited room with her bed and limited cervical ROM. Pt has difficulty to extend and ROT. However, she does show slight vertigo on B eyes with L head turn but negative on R head turn. Ilda manuever was performed after. Pt did c/o slight dizziness after tx. M7 PT-IP Assessment and Plan Start: 06/14/18 15:05 Freq: NEEDED Status: Active Protocol: Document 06/16/18 16:00 [facility] (Rec: 06/16/18 18:56 [facility] [id number]) PT Summary Assessment and Plan Summary Impairments Strength Balance Cognition Bed Mobility Transfers Gait Activity Tolerance Assessment Summary Pt overall shows improved in amb distance and level of independence. She was able to climb stairs and amb 300 feet total with FWW without signs of LOB and c/o vertigo or dizziness. Pt was impulsive and very agitated during the entire tx session regarding her current d/c plan, which requires CGA and followed by w /c during session. Pt cont refused to d/c SNF for cont rehab. Pt states Rehab in SNF wont do me good. They probably cant help me if i had BPPV Recommend pt to have assist at home and seek for outpatient PT for further assessment for possible BPPV and overall strengthening to increase her level of independence. MD and SW were notified regarding aforementioned recommendations . Goals Bed Mobility Goal Independent Transfer Goal Independent Front Wheeled Walker Gait Goal Independent Front Wheel Walker Gait Distance 500 Other Goals stair climbing 3 steps x 5 sets independently with rails Days to Meet Goals 3 Frequency of Treatment Frequency Of Treatment Once a Day Treatment Plan Physical Therapy Treatment Plan Bed Mobility Training Transfer Training Gait Training Therapeutic Exercise Balance Retraining Discharge Planning Recommendations To Nursing Amount of Assist Needed Standby Assistance 1 Person Assist Discharge Recommendations PT Discharge Recommendations Home with Assistance SNF Rehab Outpatient PT
== END 2018-06-16 18:00 | disposition home or self-care (01) ==
LOC: ED 21:25 → AC 21:53
PROVIDERS: Emergency Medicine; Family Medicine; Admitting Provider Nurse Practitioner Adult Health; Emergency Provider Emergency Medicine; Visit Provider Nurse Practitioner Adult Health
DX: R11.2 Nausea with vomiting, unspecified (principal); R19.7 Diarrhea, unspecified; G40.909 Epilepsy, unspecified, not intractable, without status epilepticus; G43.909 Migraine, unspecified, not intractable, without status migrainosus; R53.1 Weakness; I48.0 Paroxysmal atrial fibrillation; H81.10 Benign paroxysmal vertigo, unspecified ear; M54.2 Cervicalgia; M54.9 Dorsalgia, unspecified; R10.9 Unspecified abdominal pain
CPT/HCPCS: 36415; 70450; 80048; 80053; 80184; 80185; 81001; 83690; 85025; 94760; 96361; 96374; 96375; 97116; 97127; 97140; 97162; 97165; 97530; 97535; 99283; 99285; 99291; G0378; J1650; J2060; J2405; J3030; J3480

== ENCOUNTER → 2022-04-04 15:02 | Outpatient (CLI) | payer OTHER, SELFPAY ==
[2018-06-13 22:25] VITALS: BMI 29.2
--- NOTE | 2022-04-04 15:03 | DI.ECHO.S_ITS ---
[facility]---------+ [facility] +---------+ : : [address] [place] : : : : [id number] : : : : Phone: [phone]+ Echocardiogram Report + + :Name: NELIDA BAIG Study Date: 04/04/2022 Height: 64 in : :[facility] ReadingLocation: Weight: 165 lb : : Gender: Female BSA: 1.8 m2 : :: 1945 Age: 77 yrs BP: 125/89 mmHg: :Reason For Study: ATRIAL FIBRILLATION : :Ordering Physician: Jalil FULLERformed By: Zeina Hayden : :Referring: ELI FULLER : + + Interpretation Summary The ejection fraction is estimated to be 55-60%. The left atrium is moderately dilated. There is mild mitral regurgitation. There is borderline mitral valve prolapse. There is mild aortic valve sclerosis. There is mild tricuspid regurgitation. Procedure: A two-dimensional transthoracic echocardiogram with color flow and Doppler was performed. The study quality was technically adequate. There is no prior echocardiogram noted for this patient. The patient was in atrial fibrillation with heart rates between 72-96 bpm during the exam. Left Ventricle: The left ventricle is normal in size. Left ventricular wall thickness is at the upper limits of normal. The ejection fraction is estimated to be 55-60%. Left ventricular wall motion is normal. Diastolic function could not be accurately assessed due to atrial fibrillation. Right Ventricle: The right ventricle is normal in size and function. Atria: The left atrium is moderately dilated. Right atrial size is normal. There is no Doppler evidence for an interatrial shunt. Mitral Valve: There is mild mitral annular calcification. There is borderline mitral valve prolapse. There is mild mitral regurgitation. Aortic Valve: The aortic valve is slightly calcified. The aortic valve is trileaflet. There is mild aortic valve sclerosis. There is no aortic valve stenosis. No aortic regurgitation is present. Tricuspid Valve: The tricuspid valve is normal in structure and function. There is mild tricuspid regurgitation. Pulmonic Valve: The pulmonic valve leaflets are thin and pliable; valve motion is normal. There is trace pulmonic regurgitation. Great Vessels: The aortic root is normal size. The dimensions of the ascending aorta are normal. The IVC is of normal diameter and collapses greater than 50% with a sniff. This suggests a low right atrial pressure of 3 mm Hg. Pericardium/ Pleura There is no pericardial effusion. There is no pleural effusion. MMode/2D Measurements & Calculations LVIDd: 4.1 cm LVOT diam: 2.0 cm LVIDs: 2.9 cm Ao root diam: 2.7 cm FS: 29.3 % asc Aorta Diam: 3.0 cm IVSd: 1.1 cm Ao Arch Diam (Prox Trans): 3.0 cm LVPWd: 0.77 cm LV lock. diameter/BSA (cm/m^2): 2.3 LV sys. diameter/BSA (cm/m^2): 1.6 LA A2 area: 26.7 cm2 RA long axis: 4.9 cm LA A4 area: 22.7 cm2 RA area: 17.0 cm2 LA length (vol): 6.2 cm RA vol: 49.6 ml LA vol: 83.3 ml RA : 27.5 ml/m2 LA vol index: 46.2 ml/m2 IVC diam: 1.9 cm RVD1 (basal): 3.4 cm RVD2 (mid): 3.1 cm TAPSE: 2.0 cm Doppler Measurements & Calculations Ao V2 max: 152.9 cm/sec LVOT Max Thor: 89.8 cm/sec Ao V2 mean: 102.9 cm/sec LV V1 max P.3 mmHg Ao max P.4 mmHg LV V1 VTI: 16.2 cm Ao mean P.3 mmHg YUMIKO(I,D): 1.8 cm2 Ao V2 VTI: 27.6 cm YUMIKO(V,D): 1.8 cm2 sev ratio: 0.59 YUMIKO indexed to BSA (cm^2/m^2): 1.0 MV E max thor: 99.4 cm/sec TR max thor: 224.6 cm/sec MV A max thor: 1.1 cm/sec TR max P.3 mmHg MV E/A: 88.1 Med Peak E' Thor: 9.5 cm/sec E/E' med: 10.4 Lat Peak E' Thor: 11.5 cm/sec E/E' lat: 8.6 E/e' average: 9.5 MV dec time: 0.17 sec SASCHA): 49.9 ml Reading Physician:04:31 PM
== END ==
PROVIDERS: PCP Internal Medicine Cardiovascular Disease; Referring Provider Internal Medicine Cardiovascular Disease; Visit Provider Internal Medicine Cardiovascular Disease
DX: I08.3 Combined rheumatic disorders of mitral, aortic and tricuspid valves (principal); I48.0 Paroxysmal atrial fibrillation
CPT/HCPCS: 93306

== ENCOUNTER → 2023-03-07 14:07 | Outpatient (CLI) | payer OTHER, SELFPAY ==
[2023-02-26 13:57] VITALS: BMI 29.2
--- NOTE | 2023-03-07 14:10 | DI.RAD.S_ITS ---
PROCEDURE: XR LUMBAR SPINE MIN 4V INDICATIONS: LOW BACK PAIN TECHNIQUE: 5 views of the lumbar spine were acquired, including bilateral oblique views. COMPARISON: [facility], CT, CT LUMBAR SPINE WO CON, 05/22/2018, 14:45. FINDINGS: Bones: 5 nonrib-bearing vertebrae are present. There is mild, approximately 9 millimeters of L5-S1 anterolisthesis secondary to pars interarticularis defects. No vertebral body compression fractures. No suspicious bony lesions. Moderate L2-L3 and L5-S1 degenerative disc disease. Mild L1-L2, L3-L4 and L4-L5 degenerative disc disease Soft tissues: Overlying bowel gas pattern is normal. No suspicious soft tissue calcifications. Oblique images: Bilateral L5-S1 pars interarticularis defects. IMPRESSION: 1. Multilevel degenerative disc disease. 2. Multilevel facet arthropathy. 3. No fracture. No acute osseous lesion. If symptoms and/or clinical suspicion for pathology persists, evaluation with MRI should be considered for further assessment. 4. Grade 1 L5-S1 isthmic spondylolisthesis. Dictated by: Cinthia Guthrie MD, PhD on 03/07/2023 at 15:52 Approved by: Cinthia Guthrie MD, PhD on 03/07/2023 at 15:53
--- NOTE | 2023-03-07 14:10 | DI.RAD.S_ITS ---
PROCEDURE: XR THORACIC SPINE 3V INDICATIONS: THORACIC BACK PAIN TECHNIQUE: 3 views of the thoracic spine were acquired. COMPARISON: None. FINDINGS: Bones: No fractures or dislocations. No suspicious bony lesions. 12 pairs of ribs are noted, and appear intact where visualized. Moderate degenerative disc changes throughout the lumbar spine. Mild facet hypertrophy throughout the lumbar spine Soft tissues: No paravertebral stripe thickening. IMPRESSION: 1. Multilevel degenerative disc disease. 2. Multilevel facet arthropathy. 3. No fracture. No acute osseous lesion. If symptoms and/or clinical suspicion for pathology persists, evaluation with MRI should be considered for further assessment. Dictated by: Cinthia Guthrie MD, PhD on 03/07/2023 at 15:21 Approved by: Cinthia Guthrie MD, PhD on 03/07/2023 at 15:51
== END ==
PROVIDERS: PCP Family Medicine; Referring Provider Anesthesiology; Visit Provider Anesthesiology
DX: M51.34 Other intervertebral disc degeneration, thoracic region (principal); M47.814 Spondylosis without myelopathy or radiculopathy, thoracic region; M51.36 Other intervertebral disc degeneration, lumbar region; M47.816 Spondylosis without myelopathy or radiculopathy, lumbar region; M43.17 Spondylolisthesis, lumbosacral region; M54.16 Radiculopathy, lumbar region; M54.9 Dorsalgia, unspecified; M79.18 Myalgia, other site; Z68.28 Body mass index [BMI] 28.0-28.9, adult
CPT/HCPCS: 72072; 72110; 99214

== ENCOUNTER 2023-04-23 14:59 | Emergency (ER) | payer OTHER, SELFPAY ==
[2023-02-26 13:57] VITALS: BMI 29.2
[2023-04-23 15:01] VITALS: BP 109/58; PULSE 78; RESP 20; TEMP 36.7; O2SAT 98; BMI 29.2
--- NOTE | 2023-04-23 15:35 | ED_ITS ---
HPI - Extremity Problem <Criss Deal PA-C - Last Filed: 04/23/23 16:50> General Chief complaint: Extremity Problem,Nontraumatic Stated complaint: dr ref/fell/weakness in rt leg Time Seen by Provider: 04/23/23 15:11 Source: patient Mode of arrival: Ambulatory History of Present Illness HPI Narrative: 78-year-old female with chronic back pain presents to the ED with 1 day of right-sided knee pain. Patient states that she was getting ready to go to her pain management doctor for shots, when she felt her right leg give out, she was able to ease herself down to the floor. No head strike or loss of consciousness . Patient states that her knee is painful and it is difficult to bear weight and walk. Patient denies numbness, tingling, weakness. Patient's pain management doctor sent her to the ED for further evaluation prior to administering any shots. Patient states that she has chronic lower back pain, today pain is only slightly worse than baseline. Patient denies saddle paresthesias, urinary hesitancy, urinary incontinence, bowel incontinence. Related Data Home Medications Medication Instructions Recorded Confirmed ergocalciferol (vitamin D2) 1,250 50,000 units PO QWEEK 05/22/18 04/23/23 mcg (50,000 unit) capsule lorazepam 0.5 mg tablet 0.5 mg PO Q8H PRN auras 05/22/18 04/23/23 sumatriptan succinate 100 mg tablet 100 mg PO PRN PRN Migraine Headache 05/22/18 04/23/23 diltiazem HCl 360 mg 360 mg PO DAILY 03/07/23 04/23/23 capsule,extended release 24 hr gabapentin 300 mg capsule 300 mg PO BEDTIME 03/07/23 04/23/23 levetiracetam 1,000 mg tablet 1,000 mg PO BID 03/07/23 04/23/23 ondansetron 4 mg disintegrating 4 mg PO Q8H 03/07/23 04/23/23 tablet lamotrigine 150 mg tablet 150 mg PO BID 04/08/23 04/23/23 Allergies Allergy/AdvReac Type Severity Reaction Status Date / Time cephalexin [From Keflex] Allergy Verified 04/23/23 13:48 codeine AdvReac Severe Nausea Verified 04/23/23 13:48 Review of Systems <Criss Deal PA-C - Last Filed: 04/23/23 16:50> Constitutional Constitutional: Denies chills, Denies fatigue, Denies fever(s), Denies frequent falls, Denies lethargy and Denies weakness Eyes Eyes: Denies change in vision, Denies eye discharge, Denies irritation and Denies loss of vision ENT Ears, Nose, Mouth, and Throat: Denies change in voice, Denies dizziness, Denies neck pain, Denies sore throat and Denies throat swelling Cardiovascular Cardiovascular: Denies chest pain, Denies irregular heart rhythm, Denies lightheadedness, Denies palpitations, Denies dyspnea, Denies dyspnea on exertion and Denies orthopnea Respiratory Respiratory: Denies cough, Denies dyspnea, Denies dyspnea on exertion and Denies wheezing Gastrointestinal Gastrointestinal: Denies abdominal pain, Denies change in bowel habits, Denies diarrhea, Denies nausea and Denies vomiting Musculoskeletal Musculoskeletal: Reports back pain, Denies neck pain and Denies numbness Comments: Right knee pain Integumentary/Breasts Skin/Breast: Denies pruritus, Denies erythema, Denies rash and Denies wounds Neurologic Neurologic: Denies behavioral changes, Denies confusion, Denies dizziness, Denies frequent falls, Denies loss of vision, Denies numbness and Denies weakness Psychiatric Psychiatric: Denies anxiety, Denies behavioral changes, Denies confusion, Denies depression, Denies homicidal ideation and Denies suicidal ideation Endocrine Endocrine: Denies fatigue, Denies flushing and Denies palpitations Hematologic/Lymphatic Hematologic/Lymphatic: Denies easy bruising Allergic/Immunologic Allergic/Immunologic: Denies urticaria, Denies throat swelling and Denies wheezing Patient History <Criss Deal PA-C - Last Filed: 04/23/23 16:50> Medical History Thoracic spondylosis Lumbar spondylosis Myofascial pain Dorsalgia Lumbar radiculopathy Generalized weakness Migraine headache Cervical spine pain Chronic low back pain Epilepsy Atrial fibrillation Surgical History Status post meniscectomy Status post cholecystectomy Status post tubal ligation Family History Father Diabetes mellitus Mother Hemorrhagic cerebrovascular accident (CVA) Brother Non Hodgkin's lymphoma Brother Diabetes mellitus Alcohol abuse Brother No problems noted. Other Family history non-contributory Social History household members: none Smoking Status: Never smoker alcohol intake: never Smoking Status: Never smoker alcohol intake frequency: 0-2 drinks per day Substance Use Type: marijuana Exam <Criss Deal PA-C - Last Filed: 04/23/23 16:50> Narrative Exam Narrative: Const General:?cooperative, healthy appearing and comfortable [facility] Head:?normal to inspection Ears:?hearing grossly normal bilaterally Nose:?external nose normal Face and sinus:?normal facial exam and sinuses nontender Mouth:?oral mucosae normal Throat:?posterior oropharynx normal Eyes General:?appearance normal, both eyes and all related structures Neck Neck:?normal visual inspection and no lymphadenopathy noted Resp Effort & Inspection:?normal respiratory effort Auscultation:?clear to auscultation bilaterally Cardio Rate:?regular rate Rhythm:?regular rhythm\ Musculoskeletal There is a small spot of bruising on the right patella. There is some tenderness to palpation of the knee. There is full range of motion. Patient unable to bear weight and walk due to pain. Strength and sensation intact. Patient is neurovascularly intact. Neuro General:?patient alert, patient awake and patient oriented x3 Initial Vital Signs Initial Vital Signs: Vital Signs Temperature 98.1 F 04/23/23 15:01 Pulse Rate 78 04/23/23 15:01 Respiratory Rate 20 04/23/23 15:01 Blood Pressure 109/58 L 04/23/23 15:01 Pulse Oximetry 98 04/23/23 15:01 Oxygen Delivery Method Room Air 04/23/23 15:01 <Desire Fox DO - Last Filed: 04/28/23 07:10> Initial Vital Signs Initial Vital Signs: Vital Signs Temperature 98.1 F 04/23/23 15:01 Pulse Rate 78 04/23/23 15:01 Respiratory Rate 20 04/23/23 15:01 Blood Pressure 109/58 L 04/23/23 15:01 Pulse Oximetry 98 04/23/23 15:01 Oxygen Delivery Method Room Air 04/23/23 15:01 Course <Criss Deal PA-C - Last Filed: 04/23/23 16:50> Orders Ordered: Discontinued Medications Aspirin (Aspirin Ec 325 Mg Tablet) 650 mg PO NOW ONE Stop: 04/23/23 16:41 Last Admin: 04/23/23 16:50 Dose: 650 mg Documented By: LW Vital Signs Vital signs: Vital Signs - 8 hr 04/23/23 15:01 Temperature 98.1 F Pulse Rate 78 Respiratory Rate 20 Blood Pressure 109/58 L Pulse Oximetry 98 Oxygen Delivery Method Room Air <Desire Fox DO - Last Filed: 04/28/23 07:10> Orders Ordered: Discontinued Medications Aspirin (Aspirin Ec 325 Mg Tablet) 650 mg PO NOW ONE Stop: 04/23/23 16:41 Last Admin: 04/23/23 16:50 Dose: 650 mg Documented By: LW Vital Signs Vital signs: Vital Signs - 8 hr 04/23/23 15:01 Temperature 98.1 F Pulse Rate 78 Respiratory Rate 20 Blood Pressure 109/58 L Pulse Oximetry 98 Oxygen Delivery Method Room Air MDM - Extremity (Nontraumatic) <Criss Deal PA-C - Last Filed: 04/23/23 16:50> MDM Narrative Medical decision making narrative: 78-year-old female with chronic back pain presents to the ED with 1 day of right-sided knee pain. Concern for fracture/dislocation versus musculoskeletal sprain/strain versus other. Will obtain lower back and right knee x-ray. Will reassess. Patient given aspirin for pain control which is what she prefers. X- rays with no acute findings of fractures or dislocations. There is a small right knee effusion consistent with a soft tissue injury. Recommend supportive care with pain control, lidocaine patches, heat packs, rest. Recommend follow- up with automotive painter as soon as possible. ED return precautions discussed with patient. Patient verbalized understanding. Medical records reviewed: Yes Discharge Plan Departure Patient Disposition: Home Clinical Impression: Knee pain Qualifiers: Chronicity: acute Laterality: right Qualified Code(s): M25.561 - Pain in right knee Instructions: DI for Knee Pain Activity Restrictions/Additional Instructions: You were evaluated in the ED today for right-sided knee pain, back pain. Your x-rays did not show any fractures or dislocations. The x-ray shows a small joint effusion of the right knee which is most consistent with a soft tissue injury of that knee. You were given 650 mg of aspirin in the ED for pain control. You may continue to take Tylenol, ibuprofen, aspirin for pain relief. You may apply a lidocaine patch which is sold under the brand name Salonpas and available in all drug stores. You may apply heat packs for comfort as well. Please follow-up with your automotive painter as soon as possible for further evaluation. Return to the ED if you have worsening symptoms, numbness, tingling, weakness, urinary difficulties. Prescriptions: No Action sumatriptan succinate 100 mg tablet 100 mg PO PRN MDD 2 PRN (Reason: Migraine Headache) Patient Comments: TAKE ONE TABLET BY MOUTH AT ONSET OF MIGRAINE CAN REPEAT ONE TIME IN 24 HOURS ergocalciferol (vitamin D2) 50,000 unit capsule 50,000 units PO QWEEK Patient Comments: patient states needs refill lorazepam 0.5 mg tablet 0.5 mg PO Q8H PRN (Reason: auras) Patient Comments: take 1 tablet by mouth UP TO EVERY 8 HOURS NEEDED FOR AURAS levetiracetam 1,000 mg tablet 1,000 mg PO BID diltiazem HCl 360 mg capsule,extended release 24hr 360 mg PO DAILY gabapentin 300 mg capsule 300 mg PO BEDTIME ondansetron 4 mg tablet,disintegrating 4 mg PO Q8H lamotrigine 150 mg tablet 150 mg PO BID Referrals: Balbir Ayers MD [Primary Care Provider] - Stand Alone Forms: Patient Portal/API ED Sign-out <Desire Fox DO - Last Filed: 04/28/23 07:10> Cosign ED Attending Morgan Attestation: I was immediately available in the department for consultation.
--- NOTE | 2023-04-23 15:43 | DI.RAD.S_ITS ---
PROCEDURE: XR LUMBAR SPINE 2-3V INDICATIONS: fall TECHNIQUE: 3 views of the lumbar spine were acquired. COMPARISON: None. FINDINGS: Bones: 5 [id number] vertebrae are present. There is normal bony alignment. No vertebral body compression fractures. No suspicious bony lesions. Spine degenerative disc disease and facet arthropathy. Soft tissues: Overlying bowel gas pattern is normal. No suspicious soft tissue calcifications. IMPRESSION: No fracture. No acute osseous lesion. If symptoms and/or clinical suspicion for pathology persists, evaluation with MRI should be considered for further assessment. Dictated by: Cinthia Guthrie MD, PhD on 04/23/2023 at 16:24 Approved by: Cinthia Guthrie MD, PhD on 04/23/2023 at 16:24
--- NOTE | 2023-04-23 15:43 | DI.RAD.S_ITS ---
PROCEDURE: XR KNEE RT 3V INDICATIONS: fall TECHNIQUE: 3 views of the knee were acquired. COMPARISON: None. FINDINGS: Bones: No fractures or dislocations. No suspicious bony lesions. Tricompartmental osteoarthritis. Possible ossified intra-articular loose body. Soft tissues: Small joint effusion. IMPRESSION: No fracture. No acute osseous lesion. If symptoms and/or clinical suspicion for pathology persists, further assessment with repeat radiographs (7-10 days) or advanced imaging (e.g. CT, MRI or bone scan) should be considered. Small nonspecific joint effusion. Dictated by: Cinthia Guthrie MD, PhD on 04/23/2023 at 16:21 Approved by: Cinthia Guthrie MD, PhD on 04/23/2023 at 16:23
[2023-04-23] MEDS: ASPIRIN EC 325 MG TABLET 650 MG PO (16:50)
[2023-04-23 16:57] VITALS: BP 120/58; PULSE 73; RESP 18; TEMP 36.6; O2SAT 95
== END 2023-04-23 16:58 | disposition home or self-care (01) ==
PROVIDERS: Emergency Provider Student in an Organized Health Care Education/Training Program; PCP Family Medicine
DX: M25.561 Pain in right knee (principal); M47.26 Other spondylosis with radiculopathy, lumbar region; M47.814 Spondylosis without myelopathy or radiculopathy, thoracic region; M48.07 Spinal stenosis, lumbosacral region; M54.50 Low back pain, unspecified; M79.18 Myalgia, other site; M54.9 Dorsalgia, unspecified; R29.6 Repeated falls; G89.29 Other chronic pain
CPT/HCPCS: 72100; 73562; 99213; 99283